=== PATIENT | male | born 1935 | race Caucasian/White ===

== ENCOUNTER 2018-01-31 21:05 | Emergency (ER) | payer MEDICARE, BC ==
[2018-01-31] MEDS ORDERED: hydrOXYzine HCl 50 MG/ML SDV IM ONE (21:21)
[2018-01-31] MEDS ORDERED: Triamcinolone Acetonide 40 MG/ML 1 ML MDV IM ONE (21:21)
--- NOTE | 2018-01-31 21:37 | EDM.PDOC ---
ED HPI GENERAL MEDICAL PROBLEM - General Stated Complaint: RASHES ALL BODY Time Seen by Provider: 01/31/18 21:15 Source of Information: Reports: Patient History Limitations: Reports: No Limitations - History of Present Illness INITIAL COMMENTS - FREE TEXT/NARRATIVE: Km complaints of a itchy rash to this that was sudden onset tonight where he was seated at home with that.Started in the hands now spread to the body, but had improved after he took a warm shower and used an anti-itch cream. He denies any new medications but did eat new cookies he has never eaten before tonight. Km has hypertension that is stable. - Related Data Allergies Allergy/AdvReac Type Severity Reaction Status Date / Time No Known Allergies Allergy Verified 01/31/18 21:18 Home Meds: Home Meds Aspirin [Halfprin] 81 mg PO DAILY 03/16/16 [History] Docusate Sodium [Colace] 100 mg PO DAILY 03/16/16 [History] Ergocalciferol (Vitamin D2) [Vitamin D] 400 units PO ASDIRECTED 03/16/16 [ History] Hydrochlorothiazide/Losartan [Hyzaar 100-12.5 MG] 12.5 - 100 mg PO DAILY [History] Lovastatin [Mevacor] 20 mg PO BEDTIME 03/16/16 [History] Lutein/Min/Vit C/Vit E Acetate [Ocuvite Lutein] 1 tab PO DAILY 03/16/16 [History ] Terazosin [Hytrin] 10 mg PO DAILY 03/16/16 [History] Timolol Maleate [Timoptic 0.5% Ophth Soln] 1 drop EYERT DAILY 03/16/16 [History] amLODIPine [Norvasc] 10 mg PO BID 03/16/16 [History] Acetaminophen/HYDROcodone [[place] 325-5 MG] 1 - 2 tab PO Q6H PRN #30 tab [Rx] Past Medical History HEENT History: Reports: Cataract, Glaucoma, Hard of Hearing Cardiovascular History: Reports: Arrhythmia, High Cholesterol, Hypertension, PVD Other Cardiovascular History: 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 Gastrointestinal History: Reports: Chronic Constipation Genitourinary History: Reports: Renal Calculus Musculoskeletal History: Reports: Osteoarthritis Other Musculoskeletal History: LEFT ING HERNIA Psychiatric History: Reports: Depression Other Psychiatric History: MALAISE AND FATIGUE Other Hematologic History: HYPERLIPIDEMIA Other Oncologic History: MALIGNANT NEOPLASM OF PROSTATE - Past Surgical History Other Female Surgeries/Procedures: HEMATURIA Social & Family History - Caffeine Use Caffeine Use: Reports: Coffee ED ROS GENERAL - Review of Systems Review Of Systems: ROS reveals no pertinent complaints other than HPI. ED EXAM, SKIN/RASH Exam: See Below Exam Limited By: No Limitations General Appearance: Alert Cardiovascular: Normal Peripheral Pulses Neurological: Alert, Oriented Skin: Warm, Excoriations, Rash (Red,diffuse abdominal,hands and extremeites) Course - Vital Signs Last Recorded V/S: Last Vital Signs Temp 98.2 F 01/31/18 21:05 Pulse 86 01/31/18 21:05 Resp 18 01/31/18 21:05 BP 130/56 L 01/31/18 21:05 Pulse Ox 97 01/31/18 21:05 - Orders/Labs/Meds Meds: Medications Discontinued Medications Generic Name Dose Route Start Last Admin Trade Name Freq PRN Reason Stop Dose Admin Hydroxyzine HCl 50 mg 01/31/18 21:21 01/31/18 21:41 Vistaril IM 01/31/18 21:22 50 mg ONETIME ONE Administration Triamcinolone Acetonide 40 mg 01/31/18 21:21 01/31/18 21:41 Kenalog-40 IM 01/31/18 21:22 40 mg ONETIME ONE Administration Departure - Departure Time of Disposition: 22:11 Disposition: Home, Self-Care 01 Clinical Impression: Urticaria, Pruritic rash - Discharge Information Instructions: Pruritus Referrals: Gary Almonte MD [Primary Care Provider] - Forms: ED Department Discharge Additional Instructions: follow up with your primary care as needed - Problem List & Annotations (1) Pruritus SNOMED Code(s): 728221631 Code(s): L29.9 - PRURITUS, UNSPECIFIED Status: Acute Current Visit: Yes - Problem List Review Problem List Initiated/Reviewed/Updated: Yes - Assessment/Plan Plan: I gave him Vistaril and Kenalog.Symptoms resolved.DC home.
[2018-01-31 22:17] VITALS: BP 117/59
== END 2018-01-31 22:11 | disposition home or self-care (01) ==
LOC: FB.ED 21:05
DX: L50.9 Urticaria, unspecified (principal); L29.9 Pruritus, unspecified; I10 Essential (primary) hypertension; E78.5 Hyperlipidemia, unspecified; Z79.82 Long term (current) use of aspirin; Z79.899 Other long term (current) drug therapy; Z87.891 Personal history of nicotine dependence
CPT/HCPCS: 96372; 99282; J3301; J3410

== ENCOUNTER 2018-11-06 11:09 | Emergency (ER) | payer MEDICARE, BC ==
--- NOTE | 2018-11-06 12:48 | EDM.PDOC ---
ED HPI GENERAL MEDICAL PROBLEM - General Chief Complaint: Cardiovascular Problem Stated Complaint: CHEST PAIN Time Seen by Provider: 11/06/18 11:50 Source of Information: Reports: Patient History Limitations: Reports: Other (Patient is a relatively poor historian) - History of Present Illness INITIAL COMMENTS - FREE TEXT/NARRATIVE: 83-year-old male who reports while he was getting dressed at about 10:30 this morning he developed a pressure and tightness-type discomfort in his chest. He reports that it was all across his chest and he rated as a 5/10. He had no back pain. He had no arm pain. He reports the discomfort lasted for about 5-10 minutes. He was driving to the clinic and by the time he got to the clinic his symptoms are gone He had no neck or jaw pain. He did not feel short of breath. He states he had a similar pain approximately 2 days prior that also came on when he was getting dressed but it was less severe and lasted only for 5-10 minutes as well. He has had no cough. He has had no fevers or chills. He has had no nausea or vomiting. He states that he walks every day and he tells me that he never has had any problems with difficulty breathing with walking and his exercise tolerance is unchanged. Currently he has no symptoms. He rates his pain as a 0/10. He apparently stopped at the clinic and when he told them that he had chest pain, they sent him to the emergency department for evaluation. There are no other associated signs or symptoms. There are no other modifying factors. Onset: Today (10:30 AM) Duration: Resolved Prior to Arrival Location: Reports: Chest Quality: Reports: Pressure (And tightness) Severity: Moderate Improves with: Reports: None Worsens with: Reports: None Context: Reports: Other (While getting dressed) Associated Symptoms: Reports: No Other Symptoms (Besides his chest discomfort) Treatments RN FORENSIC: Reports: Other (see below) (Nothing) - Related Data Allergies Allergy/AdvReac Type Severity Reaction Status Date / Time No Known Allergies Allergy Verified 11/06/18 11:39 Home Meds: Home Meds Aspirin [Halfprin] 81 mg PO DAILY 03/16/16 [History] Docusate Sodium [Colace] 100 mg PO DAILY 03/16/16 [History] Ergocalciferol (Vitamin D2) [Vitamin D] 400 units PO ASDIRECTED 03/16/16 [ History] Hydrochlorothiazide/Losartan [Hyzaar 100-12.5 MG] 1 tab PO DAILY 03/16/16 [ History] Lovastatin [Mevacor] 20 mg PO BEDTIME 03/16/16 [History] Lutein/Min/Vit C/Vit E Acetate [Ocuvite Lutein] 1 tab PO DAILY 03/16/16 [History ] Terazosin [Hytrin] 10 mg PO BEDTIME 03/16/16 [History] Timolol Maleate [Timoptic 0.5% Ophth Soln] 1 drop EYEBOTH DAILY 03/16/16 [ History] amLODIPine [Norvasc] 10 mg PO BID 03/16/16 [History] Acetaminophen/HYDROcodone [[place] 325-5 MG] 1 - 2 tab PO Q6H PRN #30 tab [Rx] Ipratropium [Atrovent 0.03% Nasal [place]] 2 spray NS BID PRN 11/06/18 [History] Latanoprost [Xalatan] 1 drop EYERT DAILY 11/06/18 [History] Past Medical History HEENT History: Reports: Cataract, Glaucoma, Hard of Hearing Cardiovascular History: Reports: Arrhythmia, CAD, High Cholesterol, Hypertension , PVD Other Cardiovascular History: 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 Gastrointestinal History: Reports: Chronic Constipation Genitourinary History: Reports: BPH, Prostate Disorder, Renal Calculus, UTI, Recurrent Musculoskeletal History: Reports: Arthritis, Osteoarthritis Psychiatric History: Reports: Depression Oncologic (Cancer) History: Reports: Prostate - Past Surgical History HEENT Surgical History: Reports: Cataract Surgery Other HEENT Surgeries/Procedures: L bilat cataract GI Surgical History: Reports: Appendectomy, Hernia, Inguinal Other GI Surgeries/Procedures: L hernia repair Male Surgical History: Reports: Renal Calculus Social & Family History - Family History Family Medical History: Noncontributory - Tobacco Use Smoking Status *Q: Former Smoker Used Tobacco, but Quit: Yes Month/Year Tobacco Last Used: 1968 - Caffeine Use Caffeine Use: Reports: Coffee - Alcohol Use Alcohol Use History: Yes Alcohol Use Frequency: Daily (1 drink a day) - Living Situation & Occupation Living situation: Reports: Occupation: Retired Social History Comment: Lives in [place], [place] by himself. ED ROS GENERAL - Review of Systems Review Of Systems: See Below Constitutional: Reports: No Symptoms HEENT: Reports: No Symptoms Respiratory: Reports: No Symptoms Cardiovascular: Reports: Chest Pain (As above). Denies: Dyspnea on Exertion Endocrine: Reports: No Symptoms GI/Abdominal: Reports: No Symptoms : Reports: No Symptoms (No acute symptoms. Patient with problems with urination secondary to BPH) Musculoskeletal: Reports: No Symptoms Skin: Reports: No Symptoms Neurological: Reports: No Symptoms Hematologic/Lymphatic: Reports: No Symptoms Immunologic: Reports: No Symptoms ED EXAM, GENERAL - Physical Exam Exam: See Below Exam Limited By: No Limitations General Appearance: Alert, WD/WN, No Apparent Distress Eye Exam: Bilateral Eye: EOMI, Normal Inspection, PERRL Ears: Normal External Exam Ear Exam: Bilateral Ear: Auricle Normal Nose: Normal Inspection, Normal Mucosa, No Blood Throat/Mouth: Normal Inspection, Normal Oropharynx, Normal Voice, No Airway Compromise Head: Atraumatic, Normocephalic Neck: Normal Inspection, Supple, Non-Tender, Full Range of Motion Respiratory/Chest: No Respiratory Distress, Lungs Clear, Normal Breath Sounds, No Accessory Muscle Use, Chest Non-Tender Cardiovascular: No Gallop, No JVD, Irregularly Irregular, Other (Patient's radial pulses are present and symmetric) Peripheral Pulses: 2+: Radial (L), Radial (R) GI/Abdominal: Normal Bowel Sounds, Soft, Non-Tender, No Organomegaly, No Distention, No Mass Back Exam: Normal Inspection Extremities: Normal Range of Motion, Non-Tender, Normal Capillary Refill, Pedal Edema (Edema and lower legs and ankle area) Neurological: Alert, Oriented, CN II-XII Intact, Normal Cognition, No Motor/ Sensory Deficits Skin Exam: Warm, Dry, Intact, Normal Color, No Rash EKG INTERPRETATION EKG Date: 11/06/18 Time: 11:25 Rhythm: A-Fib Rate (Beats/Min): 73 [place]: Normal P-Wave: Absent QRS: Normal ST-T: Other (Lateral T-wave and inferior T-wave flattening) QT: Normal Comparison: NA - No Prior EKG Course - Vital Signs Last Recorded V/S: Last Vital Signs Temp 36.8 C 11/06/18 11:16 Pulse 69 11/06/18 14:00 Resp 18 11/06/18 14:00 BP 142/86 H 11/06/18 14:00 Pulse Ox 100 11/06/18 14:00 - Orders/Labs/Meds Orders: Active Orders 24 hr Category Date Time Status EKG Documentation Completion [RC] ASDIRECTED Care 11/06/18 12:19 Active Chest 2V [CR] Stat Exams 11/06/18 12:18 Taken EKG 12 Lead [EK] Routine Ther 11/06/18 12:18 Ordered Labs: Laboratory Tests 11/06/18 11/06/18 11/06/18 Range/Units 11:40 11:40 11:40 WBC 8.0 (4.5-12.0) X10-3/uL RBC 4.60 (4.30-5.75) x10(6)uL Hgb 14.8 (13.5-17.8) g/dL Hct 43.6 (30.0-51.3) % MCV 94.9 (80-96) fL MCH 32.2 (27.7-33.6) pg MCHC 33.9 (32.2-35.4) g/dL RDW 12.7 (11.5-15.5) % Plt Count 168 (125-369) X10(3)uL MPV 10.3 (7.4-10.4) fL Neut % (Auto) 60.4 (46-82) % Lymph % (Auto) 26.2 (13-37) % [place] % (Auto) 6.9 (4-12) % Eos % (Auto) 4 (1.0-5.0) % Baso % (Auto) 2 (0-2) % Neut # (Auto) 4.8 (1.6-8.3) # Lymph # (Auto) 2.1 (0.6-5.0) # [place] # (Auto) 0.6 (0.0-1.3) # Eos # (Auto) 0.3 (0.0-0.8) # Baso # (Auto) 0.2 (0.0-0.2) # Sodium 141 (135-145) mmol/L Potassium 3.9 (3.5-5.3) mmol/L Chloride 105 (100-110) mmol/L Carbon Dioxide 30 (21-32) mmol/L BUN 20 H (7-18) mg/dL Creatinine 1.1 (0.70-1.30) mg/dL Est Cr Clr Drug Dosing 57.50 mL/min Estimated GFR (MDRD) > 60 (>60) BUN/Creatinine Ratio 18.2 (9-20) Glucose 103 (80-116) mg/dL Calcium 9.2 (8.6-10.2) mg/dL Magnesium 1.8 (1.8-2.5) mg/dL Total Bilirubin 1.3 (0.1-1.3) mg/dL AST 20 (5-25) IU/L ALT 24 (12-36) U/L Alkaline Phosphatase 72 (56-112) IU/L Troponin I < 0.017 L (<0.017-0.056) ng/mL NT-Pro-B Natriuret Pep 376 (<=450) pg/mL Total Protein 7.0 (6.0-8.0) g/dL Albumin 3.5 (3.2-4.6) g/dL Globulin 3.5 g/dL Albumin/Globulin Ratio 1.0 - Radiology Interpretation Free Text/Narrative:: Chest x-ray PA and lateral shows no acute disease.. - Re-Assessments/Exams Free Text/Narrative Re-Assessment/Exam: 11/06/18 14:00: Patient is completely asymptomatic now. His lab tests are reassuring. His EKG does show atrial fibrillation with a controlled rate. He has no history of this area there was, however, no old EKG for comparison. I suspect that the atrial fibrillation is new. The 2 episodes of chest pain could be related to the atrial fibrillation or could be related to anginal type pain. He does not appear to have any unstable situation at this point. I feel that he is safe for discharge. He does however need follow-up with his primary doctor and he will need additional outpatient testing for this A. fib and for his episodic chest pain. I discussed this with the patient and with his daughter and he he does in fact have an appointment to see his primary doctor at 9 AM tomorrow. I have also stressed to the patient and to the daughter that if the patient develops recurrent/persistent chest pain that lasts longer than the 5- 10 minutes or is associated with shortness of breath or any other concerning symptoms, he should come back to the emergency department immediately for reevaluation. Departure - Departure Time of Disposition: 14:25 Disposition: Home, Self-Care Condition: Good (Stable) Clinical Impression: Atrial fibrillation with normal ventricular rate Chest pain Qualifiers: Chest pain type: unspecified Qualified Code(s): R07.9 - Chest pain, unspecified Instructions: Nonspecific Chest Pain, [id number], Atrial Fibrillation, Easy- to-Read Referrals: Arsalan York PA [Primary Care Provider] - Forms: ED Department Discharge Additional Instructions: Your blood tests were reassuringly normal. Your chest x-ray was normal. Your EKG showed an abnormal heart rhythm called atrial fibrillation. This could be the cause of your symptoms. You will need to follow-up with your primary doctor to have this checked out more fully and you will need to have distal testing by your doctor. Call your doctor to arrange an appointment to see him this week. You do not appear to be having a heart attack at this point. Back to the emergency department for recurrent/persistent chest discomfort, trouble breathing or any other concerning sign or symptom. - My Orders Last 24 Hours: My Active Orders 11/06/18 12:18 Chest 2V [CR] Stat EKG 12 Lead [EK] Routine 11/06/18 12:19 EKG Documentation Completion [RC] ASDIRECTED - Assessment/Plan Last 24 Hours: My Active Orders 11/06/18 12:18 Chest 2V [CR] Stat EKG 12 Lead [EK] Routine 11/06/18 12:19 EKG Documentation Completion [RC] ASDIRECTED
[2018-11-06 17:14] VITALS: BP 142/86
--- NOTE | 2018-11-07 08:55 | CR ---
INDICATION: Chest discomfort transient. CHEST TWO VIEWS: PA and lateral views of the chest 11/06/[address] of 12/18/07. The aorta is tortuous with calcification in the arch as previously. The heart is normal in size and shape. Bridging hyperostotic changes are noted in the mid-thoracic spine. The lungs appear to be somewhat hyperaerated with minimal flattening of the diaphragm leads on the lateral view and no other findings to suggest COPD. A definite active infiltrate or effusion was not identified. IMPRESSION: 1. No definite acute process. 2. ASD aorta. 3. Question mild COPD. 4. DJD spine. MTDD
== END 2018-11-06 14:35 | disposition home or self-care (01) ==
LOC: FB.ED 11:09
DX: I48.91 Unspecified atrial fibrillation (principal); I25.10 Atherosclerotic heart disease of native coronary artery without angina pectoris; Z79.82 Long term (current) use of aspirin; Z79.899 Other long term (current) drug therapy; M19.90 Unspecified osteoarthritis, unspecified site; Z98.41 Cataract extraction status, right eye; Z98.42 Cataract extraction status, left eye; Z90.49 Acquired absence of other specified parts of digestive tract
CPT/HCPCS: 36415; 71046; 80053; 83735; 83880; 84484; 85025; 93005; 99285-25

== ENCOUNTER 2019-03-28 | Observation (INO) | payer MEDICARE, BC ==
[2019-03-28] MEDS ORDERED: Alum Hydroxide/Mag Hydroxide 15 ML, Lidocaine 2% 15 ML PO ONE ×2 (00:14)
--- NOTE | 2019-03-28 00:19 | EDM.PDOC ---
ED HPI GENERAL MEDICAL PROBLEM - General Chief Complaint: Abdominal Pain Stated Complaint: STOMACH PAIN Time Seen by Provider: 03/28/19 00:05 Source of Information: Reports: Patient, Family History Limitations: Reports: Physical Impairment (hearing impaired) - History of Present Illness INITIAL COMMENTS - FREE TEXT/NARRATIVE: Km comes into [facility] ED with sxs of epigastric pain that started acutely about half hour ago. Awakened from sleep, pain is sharp at times, radiated accross upper abdomen only, no associated with heartburn, gas or belching. There is no voiding sxs, no nausea, diarrhea or constipation issues. He has never had this pain before. He has tried no meds. abdomen Pain Score (Numeric/FACES): 8 - Related Data Allergies Allergy/AdvReac Type Severity Reaction Status Date / Time No Known Allergies Allergy Verified 03/28/19 00:57 Home Meds: Home Meds Aspirin [Halfprin] 81 mg PO DAILY 03/16/16 [History] Docusate Sodium [Colace] 100 mg PO DAILY 03/16/16 [History] Ergocalciferol (Vitamin D2) [Vitamin D] 400 units PO ASDIRECTED 03/16/16 [ History] Hydrochlorothiazide/Losartan [Hyzaar 100-12.5 MG] 1 tab PO DAILY 03/16/16 [ History] Lovastatin [Mevacor] 20 mg PO BEDTIME 03/16/16 [History] Lutein/Min/Vit C/Vit E Acetate [Ocuvite Lutein] 1 tab PO DAILY 03/16/16 [History ] Terazosin [Hytrin] 10 mg PO BEDTIME 03/16/16 [History] Timolol Maleate [Timoptic 0.5% Ophth Soln] 1 drop EYEBOTH DAILY 03/16/16 [ History] amLODIPine [Norvasc] 10 mg PO BID 03/16/16 [History] Acetaminophen/HYDROcodone [[place] 325-5 MG] 1 - 2 tab PO Q6H PRN #30 tab [Rx] Ipratropium [Atrovent 0.03% Nasal [place]] 2 spray NS BID PRN 11/06/18 [History] Latanoprost [Xalatan] 1 drop EYERT DAILY 11/06/18 [History] Metoprolol Succinate [Toprol XL] 25 mg PO DAILY 03/28/19 [History] Pantoprazole [ProTONIX] 40 mg PO DAILY 03/28/19 [History] Warfarin [Coumadin] 2.5 mg PO DAILY 03/28/19 [History] Past Medical History HEENT History: Reports: Cataract, Glaucoma, Hard of Hearing Cardiovascular History: Reports: Arrhythmia, CAD, High Cholesterol, Hypertension , PVD Other Cardiovascular History: 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 Gastrointestinal History: Reports: Chronic Constipation Genitourinary History: Reports: BPH, Prostate Disorder, Renal Calculus, UTI, Recurrent Musculoskeletal History: Reports: Arthritis, Osteoarthritis Other Musculoskeletal History: LEFT ING HERNIA Psychiatric History: Reports: Depression Other Psychiatric History: MALAISE AND FATIGUE Other Hematologic History: HYPERLIPIDEMIA Oncologic (Cancer) History: Reports: Prostate Other Oncologic History: MALIGNANT NEOPLASM OF PROSTATE - Past Surgical History HEENT Surgical History: Reports: Cataract Surgery Other HEENT Surgeries/Procedures: L bilat cataract GI Surgical History: Reports: Appendectomy, Hernia, Inguinal Other GI Surgeries/Procedures: L hernia repair Male Surgical History: Reports: Renal Calculus Social & Family History - Family History Family Medical History: Noncontributory - Caffeine Use Caffeine Use: Reports: Coffee - Living Situation & Occupation Living situation: Reports: Occupation: Retired ED ROS GENERAL - Review of Systems Review Of Systems: See Below Constitutional: Reports: No Symptoms HEENT: Reports: No Symptoms Respiratory: Reports: No Symptoms Cardiovascular: Reports: No Symptoms Endocrine: Reports: No Symptoms GI/Abdominal: Reports: Abdominal Pain : Reports: No Symptoms Musculoskeletal: Reports: No Symptoms Skin: Reports: No Symptoms Neurological: Reports: No Symptoms Psychiatric: Reports: No Symptoms Hematologic/Lymphatic: Reports: No Symptoms Immunologic: Reports: No Symptoms ED EXAM, GI/ABD - Physical Exam Exam: See Below Exam Limited By: Physical Impairment (hearing impaired) General Appearance: Alert, WD/WN, Anxious, Mild Distress Eyes: Bilateral: Normal Appearance, EOMI Ears: Normal External Exam, Hearing Loss Nose: Normal Inspection Throat/Mouth: Normal Inspection, Normal Lips, Normal Oropharynx, Normal Voice, No Airway Compromise Head: Normocephalic Neck: Normal Inspection, Supple, Non-Tender Respiratory/Chest: No Respiratory Distress, Lungs Clear, No Accessory Muscle Use , Chest Non-Tender Cardiovascular: Regular Rate, Rhythm, No Edema, No Gallop, No JVD, No Murmur GI/Abdominal Exam: Normal Bowel Sounds, Soft, No Organomegaly, No Distention, No Abnormal Bruit, No Mass, Tender (epigastrium) (Male) Exam: Deferred Rectal (Males) Exam: Deferred Back Exam: Normal Inspection Extremities: Normal Inspection Neurological: Alert, Oriented, Normal Gait, No Motor/Sensory Deficits Psychiatric: Normal Affect, Anxious Skin Exam: Warm, Dry, Intact, Normal Color, No Rash Lymphatic: No Adenopathy Course - Vital Signs Text/Narrative:: Following assessment at the [facility] ED, I administered a GI Cocktail which provided any sxs relief. Subsequent screeing labs and an Abd Pelvic CT w contrast was baseline. I discussed admission to Observation and empiric trial of PPI with Protonix 80 mg IV this early am, and will keep NPO if EGD is considered needed. Last Recorded V/S: Last Vital Signs Temp 36.8 C 03/28/19 00:05 Pulse 75 03/28/19 00:50 Resp 18 03/28/19 00:50 BP 119/69 03/28/19 00:50 Pulse Ox 100 03/28/19 00:50 - Orders/Labs/Meds Orders: Active Orders 24 hr Category Date Time Status Patient Status Manage Transfer [TRANSFER] Routine ADT 03/28/19 02:11 Active CTA Abd Pelv w Cont [CT] Stat Exams 03/28/19 00:41 Taken Sodium Chloride 0.9% [Normal Saline] 1,000 ml Med 03/28/19 02:15 Active IV ASDIRECTED Sodium Chloride 0.9% [Saline Flush] Med 03/28/19 02:13 Active 10 ml FLUSH ASDIRECTED PRN Peripheral IV Insertion Adult [OM.PC] Routine Oth 03/28/19 02:13 Ordered Medication Orders Sodium Chloride (Normal Saline) 1,000 mls @ 150 mls/hr IV ASDIRECTED RUSS Stop: 03/29/19 08:54 Sodium Chloride (Saline Flush) 10 ml FLUSH ASDIRECTED PRN PRN Reason: Keep Vein Open Labs: Laboratory Tests 03/28/19 03/28/19 Range/Units 00:23 00:23 WBC 10.1 (4.5-12.0) X10-3/uL RBC 4.43 (4.30-5.75) x10(6)uL Hgb 14.1 (13.5-17.8) g/dL Hct 41.8 (30.0-51.3) % MCV 94.4 (80-96) fL MCH 31.8 (27.7-33.6) pg MCHC 33.7 (32.2-35.4) g/dL RDW 13.3 (11.5-15.5) % Plt Count 173 (125-369) X10(3)uL MPV 9.4 (7.4-10.4) fL Neut % (Auto) 62.3 (46-82) % Lymph % (Auto) 28.0 (13-37) % [place] % (Auto) 6.1 (4-12) % Eos % (Auto) 3 (1.0-5.0) % Baso % (Auto) 0 (0-2) % Neut # (Auto) 6.4 (1.6-8.3) # Lymph # (Auto) 2.8 (0.6-5.0) # [place] # (Auto) 0.6 (0.0-1.3) # Eos # (Auto) 0.3 (0.0-0.8) # Baso # (Auto) 0.0 (0.0-0.2) # Sodium 144 (135-145) mmol/L Potassium 3.2 L (3.5-5.3) mmol/L Chloride 106 (100-110) mmol/L Carbon Dioxide 29 (21-32) mmol/L BUN 21 H (7-18) mg/dL Creatinine 1.2 (0.70-1.30) mg/dL Est Cr Clr Drug Dosing TNP Estimated GFR (MDRD) 58 L (>60) BUN/Creatinine Ratio 17.5 (9-20) Glucose 135 H (80-116) mg/dL Calcium 8.9 (8.6-10.2) mg/dL Meds: Medications Generic Name Dose Route Start Last Admin Trade Name Freq PRN Reason Stop Dose Admin Sodium Chloride 1,000 mls @ 150 mls/hr 03/28/19 02:15 Normal Saline IV 03/29/19 08:54 ASDIRECTED RUSS Sodium Chloride 10 ml 03/28/19 02:13 Saline Flush FLUSH ASDIRECTED PRN Keep Vein Open Discontinued Medications Generic Name Dose Route Start Last Admin Trade Name Freq PRN Reason Stop Dose Admin Al Hydroxide/Mg Hydroxide 15 0 ml 03/28/19 00:14 03/28/19 00:25 ml/ Lidocaine HCl 15 ml PO 03/28/19 00:15 30 ml ONETIME ONE Administration Iopamidol 100 ml 03/28/19 01:01 03/28/19 01:23 Isovue-370 (76%) IV 03/28/19 01:02 100 ml . DIRECTED ONE Administration Pantoprazole Sodium 80 mg 03/28/19 02:14 Protonix Iv IVPUSH 03/28/19 02:15 .BOLUS ONE Departure - Departure Time of Disposition: 02:21 Disposition: Refer to Observation Condition: Fair Clinical Impression: Abdominal pain Qualifiers: Abdominal location: epigastric Qualified Code(s): R10.13 - Epigastric pain - Discharge Information *PRESCRIPTION DRUG MONITORING PROGRAM REVIEWED*: Not Applicable *COPY OF PRESCRIPTION DRUG MONITORING REPORT IN PATIENT LEONEL: Not Applicable - Problem List & Annotations (1) Abdominal pain SNOMED Code(s): 49895172 Code(s): R10.9 - UNSPECIFIED ABDOMINAL PAIN Status: Acute Current Visit: Yes Annotation/Comment:: Hospitalist to assume care in the am. Qualifiers: Abdominal location: epigastric Qualified Code(s): R10.13 - Epigastric pain - Problem List Review Problem List Initiated/Reviewed/Updated: Yes - My Orders Last 24 Hours: My Active Orders 03/28/19 00:41 CTA Abd Pelv w Cont [CT] Stat 03/28/19 02:11 Patient Status Manage Transfer [TRANSFER] Routine 03/28/19 02:13 Sodium Chloride 0.9% [Saline Flush] 10 ml FLUSH ASDIRECTED PRN Peripheral IV Insertion Adult [OM.PC] Routine 03/28/19 02:15 Sodium Chloride 0.9% [Normal Saline] 1,000 ml IV ASDIRECTED - Assessment/Plan Last 24 Hours: My Active Orders 03/28/19 00:41 CTA Abd Pelv w Cont [CT] Stat 03/28/19 02:11 Patient Status Manage Transfer [TRANSFER] Routine 03/28/19 02:13 Sodium Chloride 0.9% [Saline Flush] 10 ml FLUSH ASDIRECTED PRN Peripheral IV Insertion Adult [OM.PC] Routine 03/28/19 02:15 Sodium Chloride 0.9% [Normal Saline] 1,000 ml IV ASDIRECTED Plan: Hospitalist to assume care in the am.
[2019-03-28] MEDS ORDERED: Iopamidol 755 Mg/ML 100 ML Bottle IV ONE (01:01)
[2019-03-28] MEDS ORDERED: Pantoprazole 40 MG Vial IVPUSH ONE (02:14)
[2019-03-28] MEDS ORDERED: Sodium Chloride 0.9% 1,000 ML IV SCH ×2 (02:15→11:00)
[2019-03-28] MEDS ORDERED: Furosemide 40 MG/4 ML VIAL IVPUSH ONE (08:46)
[2019-03-28] MEDS: Sodium Chloride 0.9% 10 ML Syringe FLUSH PRN ×3 (08:59→09:59)
[2019-03-28] MEDS ORDERED: Acetaminophen 650 MG Supp RECTAL ONE (09:10)
[2019-03-28] MEDS ORDERED: Acetaminophen 325 MG Tab PO PRN (09:11)
[2019-03-28] MEDS ORDERED: Meropenem 1 GM SDV IVPUSH SCH (09:15)
--- NOTE | 2019-03-28 09:32 | PCM.HP.2 ---
H&P History of Present Illness - General Date of Service: 03/28/19 Admit Problem/Dx: Admission Diagnosis/Problem Admission Diagnosis/Problem Abdominal pain Source of Information: Patient, EMS Notes Reviewed, Family - History of Present Illness Initial Comments - Free Text/Narative: patient was woken up after sleep last evening with severe abdominal pain, no fevers, chills, shortness of breath, cough, chest pain, nausea, vomiting, diarrhea, or constipation. No dysuria, frequency, or hematuria. No rashes. He lives at home with family close by, 2 years ago. History of atrial fibrillation. Has been doing well up to last night. No sinus symptoms. No history of cholecystectomy or appendectomy. abdomen Pain Score (Numeric/FACES): 9 - Related Data Allergies/Adverse Reactions: Allergies Allergy/AdvReac Type Severity Reaction Status Date / Time No Known Allergies Allergy Verified 03/28/19 00:57 Home Medications: Home Meds RX: Aspirin [Halfprin] 81 mg PO DAILY 03/16/16 [History] RX: Docusate Sodium [Colace] 100 mg PO DAILY PRN 03/16/16 [History] RX: Ergocalciferol (Vitamin D2) [Vitamin D] 400 units PO DAILY 03/16/16 [History ] RX: Lovastatin [Mevacor] 20 mg PO BEDTIME 03/16/16 [History] RX: Lutein/Min/Vit C/Vit E Acetate [Ocuvite Lutein] 1 tab PO DAILY 03/16/16 [ History] RX: Terazosin [Hytrin] 10 mg PO BEDTIME 03/16/16 [History] RX: Timolol Maleate [Timoptic 0.5% Ophth Soln] 1 drop EYERT DAILY 03/16/16 [ History] RX: amLODIPine [Norvasc] 5 mg PO BID 03/16/16 [History] Ipratropium [Atrovent 0.03% Nasal [place]] 2 spray NS BID PRN 11/06/18 [History] Latanoprost [Xalatan] 1 drop EYERT BEDTIME 11/06/18 [History] Leg Vein Essentials 1 cap PO DAILY 03/28/19 [History] Losartan/Hydrochlorothiazide [Losartan-HCTZ 100-12.5 MG] 1 tab PO DAILY [History] Metoprolol Succinate [Toprol XL] 25 mg PO DAILY 03/28/19 [History] Pantoprazole [ProTONIX] 40 mg PO DAILY 03/28/19 [History] RX: Warfarin [Coumadin] 2.5 mg PO WE@1800 03/28/19 [History] RX: Warfarin [Coumadin] 3.75 mg PO SUMOTUTHFRSA@1800 03/28/19 [History] Past Medical History HEENT History: Reports: Cataract, Glaucoma, Hard of Hearing Cardiovascular History: Reports: Arrhythmia, CAD, High Cholesterol, Hypertension , PVD Other Cardiovascular History: 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 Gastrointestinal History: Reports: Chronic Constipation Genitourinary History: Reports: BPH, Prostate Disorder, Renal Calculus, UTI, Recurrent Musculoskeletal History: Reports: Arthritis, Osteoarthritis Other Musculoskeletal History: LEFT ING HERNIA Psychiatric History: Reports: Depression Other Psychiatric History: MALAISE AND FATIGUE Other Hematologic History: HYPERLIPIDEMIA Oncologic (Cancer) History: Reports: Prostate Other Oncologic History: MALIGNANT NEOPLASM OF PROSTATE - Past Surgical History HEENT Surgical History: Reports: Cataract Surgery Other HEENT Surgeries/Procedures: L bilat cataract GI Surgical History: Reports: Appendectomy, Hernia, Inguinal Other GI Surgeries/Procedures: L hernia repair Male Surgical History: Reports: Renal Calculus Social & Family History - Family History Family Medical History: Noncontributory - Tobacco Use Smoking Status *Q: Former Smoker Years of Tobacco use: 10 Used Tobacco, but Quit: No Month/Year Tobacco Last Used: 1959 - Caffeine Use Caffeine Use: Reports: Coffee - Alcohol Use Number of Drinks Per Day: 1 Date of Last Drink: 03/24/19 - Recreational Drug Use Recreational Drug Use: No - Living Situation & Occupation Living situation: Reports: Occupation: Retired H&P Review of Systems - Review of Systems: Review Of Systems: See Below General: Reports: Chills. Denies: Fever, Diaphoresis HEENT: Reports: No Symptoms Pulmonary: Reports: No Symptoms Cardiovascular: Reports: No Symptoms Gastrointestinal: Reports: Abdominal Pain, Flatus. Denies: Black Stool, Bloody Stool, Constipation, Diarrhea, Difficulty Swallowing, Nausea, Vomiting Genitourinary: Reports: No Symptoms Musculoskeletal: Reports: Back Pain (but states its gone here this morning) Skin: Reports: Jaundice Psychiatric: Reports: No Symptoms Neurological: Reports: No Symptoms Hematologic/Lymphatic: Reports: No Symptoms Exam - Exam Exam: See Below - Vital Signs Vital Signs: Last Vital Signs Temp 101.2 F H 03/28/19 07:55 Pulse 126 H 03/28/19 07:55 Resp 30 H 03/28/19 07:55 BP 107/70 03/28/19 07:55 Pulse Ox 96 03/28/19 07:55 Weight: 181 lb 3.2 oz - Exam General: Alert, Oriented, Cooperative, Other (chilled, states he cold) HEENT: PERRLA, Conjunctiva Clear, EOMI, Hearing Intact, Mucosa Moist & [place], Nares Patent, Normal Nasal Septum, Posterior Pharynx Clear, TMs Clear (right, blocked on left with cerumen) Neck: Supple, Trachea Midline, 2 Lungs: Normal Respiratory Effort, Decreased Breath Sounds Cardiovascular: Regular Rate, Regular Rhythm GI/Abdominal Exam: Normal Bowel Sounds, Soft, No Organomegaly, No Distention, No Mass, Tender (slight epigastric/RUQ, bustamante's negative) (Male) Exam: Deferred Rectal (Males) Exam: Deferred Extremities: No Pedal Edema Skin: Warm, Dry, Intact Neurological: Cranial Nerves Intact Psychiatric: Normal Affect, Normal Mood - Patient Data Lab Results Last 24 hrs: Laboratory Results - last 24 hr 03/28/19 03/28/19 03/28/19 Range/Units 00:05 00:23 00:23 WBC 10.1 (4.5-12.0) X10-3/uL RBC 4.43 (4.30-5.75) x10(6)uL Hgb 14.1 (13.5-17.8) g/dL Hct 41.8 (30.0-51.3) % MCV 94.4 (80-96) fL MCH 31.8 (27.7-33.6) pg MCHC 33.7 (32.2-35.4) g/dL RDW 13.3 (11.5-15.5) % Plt Count 173 (125-369) X10(3)uL MPV 9.4 (7.4-10.4) fL Neut % (Auto) 62.3 (46-82) % Lymph % (Auto) 28.0 (13-37) % [place] % (Auto) 6.1 (4-12) % Eos % (Auto) 3 (1.0-5.0) % Baso % (Auto) 0 (0-2) % Neut # (Auto) 6.4 (1.6-8.3) # Lymph # (Auto) 2.8 (0.6-5.0) # [place] # (Auto) 0.6 (0.0-1.3) # Eos # (Auto) 0.3 (0.0-0.8) # Baso # (Auto) 0.0 (0.0-0.2) # Sodium 144 (135-145) mmol/L Potassium 3.2 L (3.5-5.3) mmol/L Chloride 106 (100-110) mmol/L Carbon Dioxide 29 (21-32) mmol/L BUN 21 H (7-18) mg/dL Creatinine 1.2 (0.70-1.30) mg/dL Est Cr Clr Drug Dosing TNP Estimated GFR (MDRD) 58 L (>60) BUN/Creatinine Ratio 17.5 (9-20) Glucose 135 H (80-116) mg/dL Calcium 8.9 (8.6-10.2) mg/dL Total Bilirubin 1.4 H (0.1-1.3) mg/dL Direct Bilirubin 0.47 H (0.10-0.20) mg/dL AST 94 H D (5-25) IU/L ALT 63 H D (12-36) U/L Alkaline Phosphatase 72 (56-112) IU/L Total Protein 6.6 (6.0-8.0) g/dL Albumin 3.5 (3.2-4.6) g/dL Urine Color (YELLOW) Urine Appearance (CLEAR) Urine pH (5.0-6.5) Ur Specific [place] (1.010-1.025) Urine Protein (NEGATIVE) mg/dL Urine Glucose (UA) (NORMAL) mg/dL Urine Ketones (NEGATIVE) mg/dL Urine Occult Blood (NEGATIVE) Urine Nitrite (NEGATIVE) Urine Bilirubin (NEGATIVE) Urine Urobilinogen (NEGATIVE) mg/dL Ur Leukocyte Esterase (NEGATIVE) Urine RBC (0-5) Urine WBC (0-5) Ur Squamous Epith Cells (NS,R,O) Urine Bacteria (NS) Urine Mucus (NS) 03/28/19 Range/Units 02:15 WBC (4.5-12.0) X10-3/uL RBC (4.30-5.75) x10(6)uL Hgb (13.5-17.8) g/dL Hct (30.0-51.3) % MCV (80-96) fL MCH (27.7-33.6) pg MCHC (32.2-35.4) g/dL RDW (11.5-15.5) % Plt Count (125-369) X10(3)uL MPV (7.4-10.4) fL Neut % (Auto) (46-82) % Lymph % (Auto) (13-37) % [place] % (Auto) (4-12) % Eos % (Auto) (1.0-5.0) % Baso % (Auto) (0-2) % Neut # (Auto) (1.6-8.3) # Lymph # (Auto) (0.6-5.0) # [place] # (Auto) (0.0-1.3) # Eos # (Auto) (0.0-0.8) # Baso # (Auto) (0.0-0.2) # Sodium (135-145) mmol/L Potassium (3.5-5.3) mmol/L Chloride (100-110) mmol/L Carbon Dioxide (21-32) mmol/L BUN (7-18) mg/dL Creatinine (0.70-1.30) mg/dL Est Cr Clr Drug Dosing Estimated GFR (MDRD) (>60) BUN/Creatinine Ratio (9-20) Glucose (80-116) mg/dL Calcium (8.6-10.2) mg/dL Total Bilirubin (0.1-1.3) mg/dL Direct Bilirubin (0.10-0.20) mg/dL AST (5-25) IU/L ALT (12-36) U/L Alkaline Phosphatase (56-112) IU/L Total Protein (6.0-8.0) g/dL Albumin (3.2-4.6) g/dL Urine Color Yellow (YELLOW) Urine Appearance Clear (CLEAR) Urine pH 8.0 H (5.0-6.5) Ur Specific [place] 1.010 (1.010-1.025) Urine Protein Negative (NEGATIVE) mg/dL Urine Glucose (UA) 50 H (NORMAL) mg/dL Urine Ketones Negative (NEGATIVE) mg/dL Urine Occult Blood Negative (NEGATIVE) Urine Nitrite Negative (NEGATIVE) Urine Bilirubin Negative (NEGATIVE) Urine Urobilinogen Normal (NEGATIVE) mg/dL Ur Leukocyte Esterase Negative (NEGATIVE) Urine RBC 0-5 (0-5) Urine WBC 0-5 (0-5) Ur Squamous Epith Cells Rare (NS,R,O) Urine Bacteria Occasional H (NS) Urine Mucus Few H (NS) Result Diagrams: 03/28/19 09:10 03/28/19 00:23 - Problem List (1) Abdominal pain SNOMED Code(s): 00868748 ICD Code: R10.9 - UNSPECIFIED ABDOMINAL PAIN Status: Acute Current Visit : Yes Problem Details: Hospitalist to assume care in the am. Qualifiers: Abdominal location: epigastric Qualified Code(s): R10.13 - Epigastric pain (2) Atrial fibrillation with normal ventricular rate SNOMED Code(s): 21938824 ICD Code: I48.91 - UNSPECIFIED ATRIAL FIBRILLATION Status: Acute Current Visit: No (3) Inguinal hernia of left side without obstruction or gangrene SNOMED Code(s): 579730446 ICD Code: K40.90 - UNIL INGUINAL HERNIA, W/O OBST OR GANGR, NOT SPCF RECUR Status: Acute Current Visit: No Problem List Initiated/Reviewed/Updated: Yes Orders Last 24hrs: Active Orders 24 hr Category Date Time Status Patient Status [ADT] Routine ADT 03/28/19 03:42 Active Ambulate [RC] PER UNIT ROUTINE Care 03/28/19 03:42 Active Antiembolic Devices [RC] .Routine Care 03/28/19 03:42 Active Bedrest Bedside Commode [RC] ASDIRECTED Care 03/28/19 03:42 Active Muñoz Catheter Insertion [Insert Urinary Catheter] [OM. Care 03/28/19 09:00 Ordered PC] Q24H Height and Weight [RC] UPON Care 03/28/19 03:42 Active Intake and Output [RC] ASDIRECTED Care 03/28/19 03:42 Active Pulse Oximetry [RC] PRN Care 03/28/19 03:42 Active Urinary Catheter Assessment [RC] QSHIFT Care 03/28/19 08:46 Active VTE/DVT Education [RC] Click to Edit Care 03/28/19 03:42 Active Vital Signs [RC] 00,04,08,12,16,20 Care 03/28/19 03:42 Active Nothing per Oral Now Diet [DIET] Diet 03/28/19 Breakfast Active CTA Abd Pelv w Cont [CT] Stat Exams 03/28/19 00:41 Taken Chest 1V Frontal [CR] Routine Exams 03/28/19 08:50 Taken CBC WITH AUTO DIFF [HEME] Stat Lab 03/28/19 09:05 Ordered CULTURE BLOOD [BC] Stat Lab 03/28/19 09:06 Ordered CULTURE URINE [RM] Stat Lab 03/28/19 09:12 Ordered LACTIC ACID [CHEM] Stat Lab 03/28/19 09:05 Ordered Acetaminophen [Tylenol] Med 03/28/19 09:11 Active 650 mg PO Q6H PRN Meropenem [Merrem] Med 03/28/19 09:15 Active 1 gm IVPUSH Q8H Sodium Chloride 0.9% [Saline Flush] Med 03/28/19 02:13 Active 10 ml FLUSH ASDIRECTED PRN DVT/VTE Prophylaxis Reflex [OM.PC] Per Unit Routine Oth 03/28/19 03:42 Ordered Peripheral IV Insertion Adult [OM.PC] Routine Oth 03/28/19 02:13 Ordered Resuscitation Status Routine Resus Stat 03/28/19 02:14 Ordered Medication Orders Acetaminophen (Tylenol) 650 mg PO Q6H PRN PRN Reason: Fever Meropenem (Merrem) 1 gm IVPUSH Q8H RUSS Sodium Chloride (Saline Flush) 10 ml FLUSH ASDIRECTED PRN PRN Reason: Keep Vein Open Last Admin: 03/28/19 08:59 Dose: 10 ml Assessment/Plan Comment:: 1. Admitted for observation from ER for pain control, IV fluids and further evaluation. 2. Was given GI cocktail in ER which helped pain. 3. ECHO showed normal EF but with his age will slow down fluids to 70 ml/hr. 4. LFT add to previous blood draw as he is slightly icteric. 5. FULL CODE. 6. Adjust treatments as needed.
[2019-03-28] MEDS ORDERED: LORazepam 2 MG/ML SDV IVPUSH ONE (09:52)
--- NOTE | 2019-03-28 10:35 | PCM.DCSUM1 ---
Discharge Summary - Hospital Course HPI Initial Comments: patient was woken up after sleep last evening with severe abdominal pain, no fevers, chills, shortness of breath, cough, chest pain, nausea, vomiting, diarrhea, or constipation. No dysuria, frequency, or hematuria. No rashes. He lives at home with family close by, 2 years ago. History of atrial fibrillation. Has been doing well up to last night. No sinus symptoms. No history of cholecystectomy or appendectomy. - Discharge Data Discharge Date: 03/28/19 Discharge Disposition: DC/Tfer to Acute Hospital 02 Condition: Critical - Referral to Critical Access Hospital Primary Care Physician: MALISSA Solis - Discharge Diagnosis/Problem(s) (1) Sepsis SNOMED Code(s): 14619441 ICD Code: A41.9 - SEPSIS, UNSPECIFIED ORGANISM Status: Acute Current Visit: Yes (2) Hypotension SNOMED Code(s): 00197466 ICD Code: I95.9 - HYPOTENSION, UNSPECIFIED Status: Acute Current Visit: Yes (3) Acute confusion SNOMED Code(s): 087437625 ICD Code: R41.0 - DISORIENTATION, UNSPECIFIED Status: Acute Current Visit : Yes (4) Other elevated white blood cell count SNOMED Code(s): 636231377 ICD Code: D72.828 - OTHER ELEVATED WHITE BLOOD CELL COUNT Status: Acute Current Visit: Yes Problem Details: neutrophils 90% with band 4% (5) Lactic acid acidosis SNOMED Code(s): 52347387 ICD Code: E87.2 - ACIDOSIS Status: Acute Current Visit: Yes Problem Details: 5.7 (6) Hypokalemia SNOMED Code(s): 15027285 ICD Code: E87.6 - HYPOKALEMIA Status: Acute Current Visit: Yes (7) Abdominal pain SNOMED Code(s): 54414716 ICD Code: R10.9 - UNSPECIFIED ABDOMINAL PAIN Status: Acute Current Visit : Yes Qualifiers: Abdominal location: epigastric Qualified Code(s): R10.13 - Epigastric pain (8) Atrial fibrillation with normal ventricular rate SNOMED Code(s): 41253692 ICD Code: I48.91 - UNSPECIFIED ATRIAL FIBRILLATION Status: Acute Current Visit: No (9) Inguinal hernia of left side without obstruction or gangrene SNOMED Code(s): 769811605 ICD Code: K40.90 - UNIL INGUINAL HERNIA, W/O OBST OR GANGR, NOT SPCF RECUR Status: Acute Current Visit: No - Patient Summary/Data Hospital Course: Patient was admitted overnight with sudden onset of abdominal pain, but no vomiting, diarrhea, fevers or chills. Had GI cocktail in ER which helped with pain. CT showed no infectious process: lungs were clear, gallbladder moderately distended but no signs of fat stranding or inflammation. UA did not show signs of infection. Around 915 this morning he was found to be in rigors, acute confused, trying to get out of bed but not following commands, acute respiratory distress, respirations at 30, tried to place oxygen but kept taking off. Crackles throughout on exam, stat portable CXR was done, per my view flash pulmonary edema so gave Lasix 40 mg IV x 1, had Johnson placed. Attempted EKG but had a lot of artifact on due to rigors. Temp was 101.2F, tachycardiac at 126, BP 107/70. Tylenol 650 mg rectal given. Family called. Patient breathing improved, less air hungry. Patient kept trying to pull Johnson, required two nurses to keep him from pulling it out. Ativan 0.25 mg given. Stat CBC, blood cultures, lactic acid and urine culture ordered. Merrem 1 gm IV given after blood cultures obtained. Lactic acid came back at 5.7, normal WBC but neutrophils 90% and bands 4%. LFT slightly elevated. CXR report showed negative chest. Had talked with daughter on change of condition, spoke with her sister who brought him in via phone, I recommended transfer to higher level of care as we don't have a source of infection and guarded nature of his condition. They were in agreement with transfer. Spoke with Dr Bonilla at [facility], he will accept patient in transfer. Since CXR was read as negative, and lactic acid was 5.7 will restart fluids at 100 ml/hr for transport. - Patient Instructions Diet: NPO - Discharge Plan *PRESCRIPTION DRUG MONITORING PROGRAM REVIEWED*: Not Applicable *COPY OF PRESCRIPTION DRUG MONITORING REPORT IN PATIENT LEONEL: Not Applicable Home Medications: Home Meds RX: Aspirin [Halfprin] 81 mg PO DAILY 03/16/16 [History] RX: Docusate Sodium [Colace] 100 mg PO DAILY PRN 03/16/16 [History] RX: Ergocalciferol (Vitamin D2) [Vitamin D] 400 units PO DAILY 03/16/16 [History ] RX: Lovastatin [Mevacor] 20 mg PO BEDTIME 03/16/16 [History] RX: Lutein/Min/Vit C/Vit E Acetate [Ocuvite Lutein] 1 tab PO DAILY 03/16/16 [ History] RX: Terazosin [Hytrin] 10 mg PO BEDTIME 03/16/16 [History] RX: Timolol Maleate [Timoptic 0.5% Ophth Soln] 1 drop EYERT DAILY 03/16/16 [ History] RX: amLODIPine [Norvasc] 5 mg PO BID 03/16/16 [History] Ipratropium [Atrovent 0.03% Nasal [place]] 2 spray NS BID PRN 11/06/18 [History] Latanoprost [Xalatan] 1 drop EYERT BEDTIME 11/06/18 [History] Leg Vein Essentials 1 cap PO DAILY 03/28/19 [History] Losartan/Hydrochlorothiazide [Losartan-HCTZ 100-12.5 MG] 1 tab PO DAILY [History] Metoprolol Succinate [Toprol XL] 25 mg PO DAILY 03/28/19 [History] Pantoprazole [ProTONIX] 40 mg PO DAILY 03/28/19 [History] RX: Warfarin [Coumadin] 2.5 mg PO WE@1800 03/28/19 [History] RX: Warfarin [Coumadin] 3.75 mg PO SUMOTUTHFRSA@1800 03/28/19 [History] Patient Handouts: Abdominal Pain, Adult, [id number], Fall Prevention in Hospitals, Adult Forms: ED Department Discharge Referrals: Arsalan York PA [Primary Care Provider] - - Discharge Summary/Plan Comment DC Time >30 min.: No - Patient Data Vitals - Most Recent: Last Vital Signs Temp 101.2 F H 03/28/19 08:55 Pulse 126 H 03/28/19 08:55 Resp 30 H 03/28/19 08:55 BP 107/70 03/28/19 08:55 Pulse Ox 96 03/28/19 08:55 Weight - Most Recent: 181 lb 3.2 oz I&O - Last 24 hours: Intake & Output 03/27/19 03/28/1903/28/19 22:59 06:59 14:59 Intake Total 478 Output Total 200 Balance 278 Lab Results - Last 24 hrs: Laboratory Results - last 24 hr 03/28/19 03/28/19 03/28/19 Range/Units 00:05 00:23 00:23 WBC 10.1 (4.5-12.0) X10-3/uL RBC 4.43 (4.30-5.75) x10(6)uL Hgb 14.1 (13.5-17.8) g/dL Hct 41.8 (30.0-51.3) % MCV 94.4 (80-96) fL MCH 31.8 (27.7-33.6) pg MCHC 33.7 (32.2-35.4) g/dL RDW 13.3 (11.5-15.5) % Plt Count 173 (125-369) X10(3)uL MPV 9.4 (7.4-10.4) fL Neut % (Auto) 62.3 (46-82) % Lymph % (Auto) 28.0 (13-37) % [place] % (Auto) 6.1 (4-12) % Eos % (Auto) 3 (1.0-5.0) % Baso % (Auto) 0 (0-2) % Neut # (Auto) 6.4 (1.6-8.3) # Lymph # (Auto) 2.8 (0.6-5.0) # [place] # (Auto) 0.6 (0.0-1.3) # Eos # (Auto) 0.3 (0.0-0.8) # Baso # (Auto) 0.0 (0.0-0.2) # Add Manual Diff Neutrophils % (Manual) (46-82) % Band Neutrophils % (0-6) % Lymphocytes % (Manual) (13-37) % Monocytes % (Manual) (4-12) % Sodium 144 (135-145) mmol/L Potassium 3.2 L (3.5-5.3) mmol/L Chloride 106 (100-110) mmol/L Carbon Dioxide 29 (21-32) mmol/L BUN 21 H (7-18) mg/dL Creatinine 1.2 (0.70-1.30) mg/dL Est Cr Clr Drug Dosing TNP Estimated GFR (MDRD) 58 L (>60) BUN/Creatinine Ratio 17.5 (9-20) Glucose 135 H (80-116) mg/dL Lactic Acid (0.4-2.2) mmol/L Calcium 8.9 (8.6-10.2) mg/dL Total Bilirubin 1.4 H (0.1-1.3) mg/dL Direct Bilirubin 0.47 H (0.10-0.20) mg/dL AST 94 H D (5-25) IU/L ALT 63 H D (12-36) U/L Alkaline Phosphatase 72 (56-112) IU/L Total Protein 6.6 (6.0-8.0) g/dL Albumin 3.5 (3.2-4.6) g/dL Urine Color (YELLOW) Urine Appearance (CLEAR) Urine pH (5.0-6.5) Ur Specific [place] (1.010-1.025) Urine Protein (NEGATIVE) mg/dL Urine Glucose (UA) (NORMAL) mg/dL Urine Ketones (NEGATIVE) mg/dL Urine Occult Blood (NEGATIVE) Urine Nitrite (NEGATIVE) Urine Bilirubin (NEGATIVE) Urine Urobilinogen (NEGATIVE) mg/dL Ur Leukocyte Esterase (NEGATIVE) Urine RBC (0-5) Urine WBC (0-5) Ur Squamous Epith Cells (NS,R,O) Urine Bacteria (NS) Urine Mucus (NS) 03/28/19 03/28/19 03/28/19 Range/Units 02:15 09:10 09:10 WBC 7.2 (4.5-12.0) X10-3/uL RBC 4.42 (4.30-5.75) x10(6)uL Hgb 14.2 (13.5-17.8) g/dL Hct 42.2 (30.0-51.3) % MCV 95.4 (80-96) fL MCH 32.2 (27.7-33.6) pg MCHC 33.7 (32.2-35.4) g/dL RDW 13.1 (11.5-15.5) % Plt Count 146 (125-369) X10(3)uL MPV 9.5 (7.4-10.4) fL Neut % (Auto) (46-82) % Lymph % (Auto) (13-37) % [place] % (Auto) (4-12) % Eos % (Auto) (1.0-5.0) % Baso % (Auto) (0-2) % Neut # (Auto) (1.6-8.3) # Lymph # (Auto) (0.6-5.0) # [place] # (Auto) (0.0-1.3) # Eos # (Auto) (0.0-0.8) # Baso # (Auto) (0.0-0.2) # Add Manual Diff Yes Neutrophils % (Manual) 90 H (46-82) % Band Neutrophils % 4 (0-6) % Lymphocytes % (Manual) 5 L (13-37) % Monocytes % (Manual) 1 L (4-12) % Sodium (135-145) mmol/L Potassium (3.5-5.3) mmol/L Chloride (100-110) mmol/L Carbon Dioxide (21-32) mmol/L BUN (7-18) mg/dL Creatinine (0.70-1.30) mg/dL Est Cr Clr Drug Dosing Estimated GFR (MDRD) (>60) BUN/Creatinine Ratio (9-20) Glucose (80-116) mg/dL Lactic Acid 5.7 H* (0.4-2.2) mmol/L Calcium (8.6-10.2) mg/dL Total Bilirubin (0.1-1.3) mg/dL Direct Bilirubin (0.10-0.20) mg/dL AST (5-25) IU/L ALT (12-36) U/L Alkaline Phosphatase (56-112) IU/L Total Protein (6.0-8.0) g/dL Albumin (3.2-4.6) g/dL Urine Color Yellow (YELLOW) Urine Appearance Clear (CLEAR) Urine pH 8.0 H (5.0-6.5) Ur Specific [place] 1.010 (1.010-1.025) Urine Protein Negative (NEGATIVE) mg/dL Urine Glucose (UA) 50 H (NORMAL) mg/dL Urine Ketones Negative (NEGATIVE) mg/dL Urine Occult Blood Negative (NEGATIVE) Urine Nitrite Negative (NEGATIVE) Urine Bilirubin Negative (NEGATIVE) Urine Urobilinogen Normal (NEGATIVE) mg/dL Ur Leukocyte Esterase Negative (NEGATIVE) Urine RBC 0-5 (0-5) Urine WBC 0-5 (0-5) Ur Squamous Epith Cells Rare (NS,R,O) Urine Bacteria Occasional H (NS) Urine Mucus Few H (NS) Med Orders - Current: Current Medications Acetaminophen (Tylenol) 650 mg PO Q6H PRN PRN Reason: Fever Meropenem (Merrem) 1 gm IVPUSH Q8H [facility] Last Admin: 03/28/19 09:32 Dose: 1 gm Sodium Chloride (Saline Flush) 10 ml FLUSH ASDIRECTED PRN PRN Reason: Keep Vein Open Last Admin: 03/28/19 09:59 Dose: 10 ml Discontinued Medications Acetaminophen (Tylenol) 650 mg RECTAL NOW ONE Stop: 03/28/19 09:11 Last Admin: 03/28/19 09:34 Dose: 650 mg Al Hydroxide/Mg Hydroxide 15 (ml/ Lidocaine HCl 15 ml) 0 ml PO ONETIME ONE Stop: 03/28/19 00:15 Last Admin: 03/28/19 00:25 Dose: 30 ml Furosemide (Lasix) 40 mg IVPUSH NOW ONE Stop: 03/28/19 08:47 Last Admin: 03/28/19 08:59 Dose: 40 mg Sodium Chloride (Normal Saline) 1,000 mls @ 150 mls/hr IV ASDIRECTED [facility] Stop: 03/29/19 08:54 Last Admin: 03/28/19 04:20 Dose: 150 mls/hr Iopamidol (Isovue-370 (76%)) 100 ml IV . DIRECTED ONE Stop: 03/28/19 01:02 Last Admin: 03/28/19 01:23 Dose: 100 ml Lorazepam (Ativan) 0.25 mg IVPUSH ONETIME ONE Stop: 03/28/19 09:53 Last Admin: 03/28/19 09:58 Dose: 0.25 mg Pantoprazole Sodium (Protonix Iv) 80 mg IVPUSH .BOLUS ONE Stop: 03/28/19 02:15 Last Admin: 03/28/19 02:58 Dose: 80 mg - Exam Quality Assessment: Reports: Supplemental Oxygen General: Reports: Moderate Distress Neck: Reports: Supple, Trachea Midline Lungs: Reports: Decreased Breath Sounds, Crackles Cardiovascular: Reports: Tachycardia GI/Abdominal Exam: Normal Bowel Sounds, Soft (Male) Exam: Other (johnson in place)
[2019-03-28 11:12] VITALS: BP 142/80; PULSE 88
== END 2019-03-28 11:25 ==
LOC: FB.ED → FB.MS 02:14
PROVIDERS: ADMIT Family Medicine; ATTEND Family Medicine
DX: R10.13 Epigastric pain (principal); A41.9 Sepsis, unspecified organism; I95.9 Hypotension, unspecified; E87.2 Acidosis; E87.6 Hypokalemia; I25.10 Atherosclerotic heart disease of native coronary artery without angina pectoris; I10 Essential (primary) hypertension; I48.91 Unspecified atrial fibrillation; E78.00 Pure hypercholesterolemia, unspecified; K40.90 Unilateral inguinal hernia, without obstruction or gangrene, not specified as recurrent; Z87.891 Personal history of nicotine dependence; Z79.82 Long term (current) use of aspirin; Z79.01 Long term (current) use of anticoagulants; Z79.899 Other long term (current) drug therapy
CPT/HCPCS: 36415; 51702; 71045; 74174; 80048; 80076; 81001; 83605; 85025; 87040; 87077; 87086; 87186; 93005; 96361; 96374; 96375; 99284; A9270; C9113; G0378; J1940; J2060; J2185; J7030; Q9967

== ENCOUNTER 2019-04-07 16:07 | Emergency (ER) | payer MEDICARE, BC ==
[2019-04-07] MEDS ORDERED: Tamsulosin 0.4 MG Cap.ER PO ONE (18:39)
--- NOTE | 2019-04-07 18:45 | EDM.PDOC ---
ED HPI GENERAL MEDICAL PROBLEM - General Chief Complaint: Abdominal Pain Stated Complaint: UTI Time Seen by Provider: 04/07/19 16:15 Source of Information: Reports: Patient History Limitations: Reports: No Limitations - History of Present Illness INITIAL COMMENTS - FREE TEXT/NARRATIVE: Patient presented to the ED because of dysuria, suprapubic pain and left flank pain. there is no associated fever or chills. He is currently being treated with IV zosyn due to sepsis/bacteremia. Groin Pain Score (Numeric/FACES): 8 - Related Data Allergies Allergy/AdvReac Type Severity Reaction Status Date / Time No Known Allergies Allergy Verified 04/07/19 16:50 Home Meds: Home Meds Aspirin [Halfprin] 81 mg PO DAILY 03/16/16 [History] Docusate Sodium [Colace] 100 mg PO DAILY PRN 03/16/16 [History] Ergocalciferol (Vitamin D2) [Vitamin D] 400 units PO DAILY 03/16/16 [History] Lovastatin [Mevacor] 20 mg PO BEDTIME 03/16/16 [History] Lutein/Min/Vit C/Vit E Acetate [Ocuvite Lutein] 1 tab PO DAILY 03/16/16 [History ] Terazosin [Hytrin] 10 mg PO BEDTIME 03/16/16 [History] Timolol Maleate [Timoptic 0.5% Ophth Soln] 1 drop EYERT DAILY 03/16/16 [History] amLODIPine [Norvasc] 5 mg PO BID 03/16/16 [History] Ipratropium [Atrovent 0.03% Nasal [place]] 2 spray NS BID PRN 11/06/18 [History] Latanoprost [Xalatan] 1 drop EYERT BEDTIME 11/06/18 [History] Leg Vein Essentials 1 cap PO DAILY 03/28/19 [History] Losartan/Hydrochlorothiazide [Losartan-HCTZ 100-12.5 MG] 1 tab PO DAILY [History] Metoprolol Succinate [Toprol XL] 25 mg PO DAILY 03/28/19 [History] Pantoprazole [ProTONIX] 40 mg PO DAILY 03/28/19 [History] Warfarin [Coumadin] 2.5 mg PO WE@1800 03/28/19 [History] Warfarin [Coumadin] 3.75 mg PO SUMOTUTHFRSA@1800 03/28/19 [History] Tamsulosin [Tamsulosin 24 Hr] 0.4 mg PO DAILY #10 cap.er 04/07/19 [Rx] traMADol [Ultram] 50 mg PO Q6H PRN #15 tab 04/07/19 [Rx] Past Medical History HEENT History: Reports: Cataract, Glaucoma, Hard of Hearing Cardiovascular History: Reports: Arrhythmia, CAD, High Cholesterol, Hypertension , PVD Other Cardiovascular History: 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 Gastrointestinal History: Reports: Chronic Constipation Genitourinary History: Reports: BPH, Prostate Disorder, Renal Calculus, UTI, Recurrent Musculoskeletal History: Reports: Arthritis, Osteoarthritis Other Musculoskeletal History: LEFT ING HERNIA Psychiatric History: Reports: Depression Other Psychiatric History: MALAISE AND FATIGUE Other Hematologic History: HYPERLIPIDEMIA Oncologic (Cancer) History: Reports: Prostate Other Oncologic History: MALIGNANT NEOPLASM OF PROSTATE - Past Surgical History HEENT Surgical History: Reports: Cataract Surgery Other HEENT Surgeries/Procedures: L bilat cataract GI Surgical History: Reports: Appendectomy, Hernia, Inguinal Other GI Surgeries/Procedures: L hernia repair Male Surgical History: Reports: Renal Calculus Social & Family History - Family History Family Medical History: Noncontributory - Tobacco Use Smoking Status *Q: Never Smoker Second Hand Smoke Exposure: No - Caffeine Use Caffeine Use: Reports: None - Recreational Drug Use Recreational Drug Use: No - Living Situation & Occupation Living situation: Reports: Occupation: Retired ED ROS GENERAL - Review of Systems Review Of Systems: See Below Constitutional: Reports: No Symptoms HEENT: Reports: No Symptoms Respiratory: Reports: No Symptoms Cardiovascular: Reports: No Symptoms Endocrine: Reports: No Symptoms GI/Abdominal: Reports: No Symptoms : Reports: Dysuria, Flank Pain, Urgency Musculoskeletal: Reports: No Symptoms Skin: Reports: No Symptoms Neurological: Reports: No Symptoms ED EXAM, RENAL/ - Physical Exam Exam: See Below Exam Limited By: No Limitations General Appearance: Alert, No Apparent Distress Eye Exam: Bilateral Eye: PERRL Ears: Normal External Exam, Normal Canal, Hearing Grossly Normal Nose: Normal Inspection, Normal Mucosa, No Blood Throat/Mouth: Normal Inspection, Normal Lips, Normal Teeth, Normal Gums Head: Atraumatic, Normocephalic Neck: Normal Inspection, Supple, Non-Tender, Full Range of Motion Respiratory/Chest: No Respiratory Distress, Lungs Clear, Normal Breath Sounds, No Accessory Muscle Use, Chest Non-Tender Cardiovascular: Normal Peripheral Pulses, Regular Rate, Rhythm, No Edema, No Gallop, No Murmur, No Rub GI/Abdominal: Normal Bowel Sounds, Soft, Non-Tender, No Organomegaly, Other ( tenderness suprapupib area) (Male) Exam: No Hernia, Normal Inspection Course - Vital Signs Text/Narrative:: bladder scan-almost 1 L of post voidal urine Indwelling leg bag catheter was placed started on flomax UA-neg Last Recorded V/S: Last Vital Signs Temp 36.6 C 04/07/19 16:10 Pulse 80 04/07/19 18:00 Resp 18 04/07/19 18:00 BP 140/82 04/07/19 18:00 Pulse Ox 98 04/07/19 18:00 - Orders/Labs/Meds Orders: Active Orders 24 hr Category Date Time Status Bladder Scan [RC] ASDIRECTED Care 04/07/19 16:26 Active Muñoz Catheter Insertion [Insert Urinary Catheter] [OM. Care 04/07/19 17:00 Ordered PC] Q24H Urinary Catheter Assessment [RC] QSHIFT Care 04/07/19 16:47 Active Abdomen Pelvis wo Cont [CT] Stat Exams 04/07/19 16:25 Taken Labs: Laboratory Tests 04/07/19 04/07/19 04/07/19 Range/Units 16:11 16:39 16:39 WBC 8.2 (4.5-12.0) X10-3/uL RBC 4.03 L (4.30-5.75) x10(6)uL Hgb 12.9 L (13.5-17.8) g/dL Hct 38.5 (30.0-51.3) % MCV 95.5 (80-96) fL MCH 32.0 (27.7-33.6) pg MCHC 33.5 (32.2-35.4) g/dL RDW 13.4 (11.5-15.5) % Plt Count 278 (125-369) X10(3)uL MPV 8.9 (7.4-10.4) fL Neut % (Auto) 73.6 (46-82) % Lymph % (Auto) 17.7 (13-37) % [place] % (Auto) 6.3 (4-12) % Eos % (Auto) 2 (1.0-5.0) % Baso % (Auto) 1 (0-2) % Neut # (Auto) 6.1 (1.6-8.3) # Lymph # (Auto) 1.4 (0.6-5.0) # [place] # (Auto) 0.5 (0.0-1.3) # Eos # (Auto) 0.1 (0.0-0.8) # Baso # (Auto) 0.1 (0.0-0.2) # Sodium 142 (135-145) mmol/L Potassium 3.3 L (3.5-5.3) mmol/L Chloride 105 D (100-110) mmol/L Carbon Dioxide 27 (21-32) mmol/L BUN 9 (7-18) mg/dL Creatinine 1.1 (0.70-1.30) mg/dL Est Cr Clr Drug Dosing TNP Estimated GFR (MDRD) > 60 (>60) BUN/Creatinine Ratio 8.2 L (9-20) Glucose 120 H (80-116) mg/dL Calcium 9.1 (8.6-10.2) mg/dL Urine Color Yellow (YELLOW) Urine Appearance Clear (CLEAR) Urine pH 6.5 (5.0-6.5) Ur Specific [place] 1.015 (1.010-1.025) Urine Protein Negative (NEGATIVE) mg/dL Urine Glucose (UA) Normal (NORMAL) mg/dL Urine Ketones Negative (NEGATIVE) mg/dL Urine Occult Blood Negative (NEGATIVE) Urine Nitrite Negative (NEGATIVE) Urine Bilirubin Negative (NEGATIVE) Urine Urobilinogen Normal (NEGATIVE) mg/dL Ur Leukocyte Esterase Negative (NEGATIVE) Urine RBC 0-5 (0-5) Urine WBC 0-5 (0-5) Ur Squamous Epith Cells Few H (NS,R,O) Urine Bacteria Few H (NS) Urine Mucus Few H (NS) Meds: Medications Discontinued Medications Generic Name Dose Route Start Last Admin Trade Name Freq PRN Reason Stop Dose Admin Tamsulosin HCl 0.4 mg 04/07/19 18:39 04/07/19 19:00 Flomax PO 04/07/19 18:40 0.4 mg ONETIME ONE Administration Departure - Departure Time of Disposition: 18:40 Disposition: Home, Self-Care 01 Condition: Good Clinical Impression: Nephrolithiasis, Urinary retention, BPH (benign prostatic hyperplasia) - Discharge Information Prescriptions: Tamsulosin [Tamsulosin 24 Hr] 0.4 mg PO DAILY #10 cap.er traMADol [Ultram] 50 mg PO Q6H PRN #15 tab PRN Reason: Pain Instructions: Kidney Stones, [id number], Acute Urinary Retention, Male Referrals: Arsalan York PA [Primary Care Provider] - Forms: ED Department Discharge Additional Instructions: please read discharge instructions on kidney stone and urinary retention increase oral fluids flomax take 1 tablet daily tramadol 50 mg, take 1 tablet every 6 hours as needed for pain follow up with your doctor this coming week - My Orders Last 24 Hours: My Active Orders 04/07/19 16:25 Abdomen Pelvis wo Cont [CT] Stat 04/07/19 16:26 Bladder Scan [RC] ASDIRECTED 04/07/19 16:47 Urinary Catheter Assessment [RC] QSHIFT 04/07/19 17:00 Muñoz Catheter Insertion [Insert Urinary Catheter] [OM.PC] Q24H - Assessment/Plan Last 24 Hours: My Active Orders 04/07/19 16:25 Abdomen Pelvis wo Cont [CT] Stat 04/07/19 16:26 Bladder Scan [RC] ASDIRECTED 04/07/19 16:47 Urinary Catheter Assessment [RC] QSHIFT 04/07/19 17:00 Muñoz Catheter Insertion [Insert Urinary Catheter] [OM.PC] Q24H
[2019-04-07 22:14] VITALS: BP 140/82; PULSE 80
== END 2019-04-07 19:05 | disposition home or self-care (01) ==
LOC: FB.ED 16:07
DX: N20.0 Calculus of kidney (principal); N40.1 Benign prostatic hyperplasia with lower urinary tract symptoms; R33.8 Other retention of urine; I25.10 Atherosclerotic heart disease of native coronary artery without angina pectoris; I10 Essential (primary) hypertension; E78.5 Hyperlipidemia, unspecified; Z79.82 Long term (current) use of aspirin; Z79.01 Long term (current) use of anticoagulants; Z79.899 Other long term (current) drug therapy
CPT/HCPCS: 36415; 51702; 51798; 74176; 80048; 81001; 85025; 99284; A9270

== ENCOUNTER 2019-04-12 13:03 | Emergency (ER) | payer MEDICARE, BC ==
[2019-04-12] MEDS ORDERED: Amoxicillin/Clavulanate K 875-125 MG Tab PO ONE (13:04)
--- NOTE | 2019-04-12 13:40 | EDM.PDOC ---
ED HPI GENERAL MEDICAL PROBLEM - General Stated Complaint: GENTIALS KANGEN Time Seen by Provider: 04/12/19 13:15 Source of Information: Reports: Patient, Family History Limitations: Reports: Other (dementia. ) - History of Present Illness INITIAL COMMENTS - FREE TEXT/NARRATIVE: pt with dementia comes from home with his daughter with concerns for urinary retention and swelling at his penis, pt had a folly catheter that was removed yesterday and toward the evening he started noticing swelling and pain at tip of his penis along with drippiling and difficulties voiding, pt denies new medications , denies fever or chills , and beside he above there are no other medical concerns. - Related Data Allergies Allergy/AdvReac Type Severity Reaction Status Date / Time No Known Allergies Allergy Verified 04/07/19 16:50 Home Meds: Home Meds Aspirin [Halfprin] 81 mg PO DAILY 03/16/16 [History] Docusate Sodium [Colace] 100 mg PO DAILY PRN 03/16/16 [History] Ergocalciferol (Vitamin D2) [Vitamin D] 400 units PO DAILY 03/16/16 [History] Lovastatin [Mevacor] 20 mg PO BEDTIME 03/16/16 [History] Lutein/Min/Vit C/Vit E Acetate [Ocuvite Lutein] 1 tab PO DAILY 03/16/16 [History ] Terazosin [Hytrin] 10 mg PO BEDTIME 03/16/16 [History] Timolol Maleate [Timoptic 0.5% Ophth Soln] 1 drop EYERT DAILY 03/16/16 [History] amLODIPine [Norvasc] 5 mg PO BID 03/16/16 [History] Ipratropium [Atrovent 0.03% Nasal [place]] 2 spray NS BID PRN 11/06/18 [History] Latanoprost [Xalatan] 1 drop EYERT BEDTIME 11/06/18 [History] Leg Vein Essentials 1 cap PO DAILY 03/28/19 [History] Losartan/Hydrochlorothiazide [Losartan-HCTZ 100-12.5 MG] 1 tab PO DAILY [History] Metoprolol Succinate [Toprol XL] 25 mg PO DAILY 03/28/19 [History] Pantoprazole [ProTONIX] 40 mg PO DAILY 03/28/19 [History] Warfarin [Coumadin] 2.5 mg PO WE@1800 03/28/19 [History] Warfarin [Coumadin] 3.75 mg PO JAMIETPHILLYFRSA@1800 03/28/19 [History] Tamsulosin [Tamsulosin 24 Hr] 0.4 mg PO DAILY #10 cap.er 04/07/19 [Rx] traMADol [Ultram] 50 mg PO Q6H PRN #15 tab 04/07/19 [Rx] Past Medical History HEENT History: Reports: Cataract, Glaucoma, Hard of Hearing Cardiovascular History: Reports: Arrhythmia, CAD, High Cholesterol, Hypertension , PVD Other Cardiovascular History: 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 Gastrointestinal History: Reports: Chronic Constipation Genitourinary History: Reports: BPH, Prostate Disorder, Renal Calculus, UTI, Recurrent Musculoskeletal History: Reports: Arthritis, Osteoarthritis Other Musculoskeletal History: LEFT ING HERNIA Psychiatric History: Reports: Depression Other Psychiatric History: MALAISE AND FATIGUE Other Hematologic History: HYPERLIPIDEMIA Oncologic (Cancer) History: Reports: Prostate Other Oncologic History: MALIGNANT NEOPLASM OF PROSTATE - Past Surgical History HEENT Surgical History: Reports: Cataract Surgery Other HEENT Surgeries/Procedures: L bilat cataract GI Surgical History: Reports: Appendectomy, Hernia, Inguinal Other GI Surgeries/Procedures: L hernia repair Male Surgical History: Reports: Renal Calculus Social & Family History - Family History Family Medical History: Noncontributory - Caffeine Use Caffeine Use: Reports: None - Living Situation & Occupation Living situation: Reports: Occupation: Retired ED ROS GENERAL - Review of Systems Review Of Systems: See Below Constitutional: Reports: No Symptoms Respiratory: Reports: No Symptoms Cardiovascular: Reports: No Symptoms GI/Abdominal: Reports: No Symptoms ED EXAM, GENERAL - Physical Exam Exam: See Below Exam Limited By: No Limitations General Appearance: Alert, No Apparent Distress Respiratory/Chest: No Respiratory Distress, Lungs Clear, Normal Breath Sounds Cardiovascular: Normal Peripheral Pulses, Regular Rate, Rhythm, No Edema GI/Abdominal: Normal Bowel Sounds, Soft, Non-Tender (Male) Exam: Suprapubic Fullness, Other (soft tissue swelling/ edema and tendernss / erythema noted all around the penis gland , no discharge noted. ). No: Scrotal Swelling, Scrotum Tenderness (L), Scrotum Tenderness (R), Testicular Mass, Testicular Tenderness (L), Testicular Tenderness (R), Urethral Discharge Extremities: Normal Inspection, Other (mild erythema at medial side of left ankle/leg was noted, no enduration, or warmth or tendernss , no calf tendernss or leg edema. ) Neurological: Alert, Oriented, CN II-XII Intact Course - Vital Signs Text/Narrative:: with scan pt had 600 cc in his bladder. 14 pk catheter was placed. pt seems to have soft tissue cellulitis causing mechanical obstruction. pt was given Rocephin 1 gm and will be started on Augmentin. pt to follow with PCP in 2 days for re-check. - Orders/Labs/Meds Orders: Active Orders 24 hr Category Date Time Status Bladder Scan [RC] ASDIRECTED Care 04/12/19 13:38 Active Insert Urinary Catheter [OM.PC] Q24H Care 04/12/19 13:45 Ordered Urinary Catheter Assessment [RC] [facility] 04/12/19 13:38 Active UA W/MICROSCOPIC [URIN] Stat Lab 04/12/19 13:37 Received Departure - Departure Time of Disposition: 13:46 Disposition: Home, Self-Care 01 Clinical Impression: Penis, cellulitis - Discharge Information Referrals: Gary Almonte MD [Primary Care Provider] - - My Orders Last 24 Hours: My Active Orders 04/12/19 13:37 UA W/MICROSCOPIC [URIN] Stat 04/12/19 13:38 Bladder Scan [RC] ASDIRECTED Urinary Catheter Assessment [RC] [facility] 04/12/19 13:45 Insert Urinary Catheter [OM.PC] Q24H - Assessment/Plan Last 24 Hours: My Active Orders 04/12/19 13:37 UA W/MICROSCOPIC [URIN] Stat 04/12/19 13:38 Bladder Scan [RC] ASDIRECTED Urinary Catheter Assessment [RC] [facility] 04/12/19 13:45 Insert Urinary Catheter [OM.PC] Q24H
[2019-04-12] MEDS ORDERED: cefTRIAXone 1 GM Vial IM ONE (13:46)
[2019-04-12 17:19] VITALS: BP 149/73; PULSE 89
== END 2019-04-12 14:40 | disposition home or self-care (01) ==
LOC: FB.ED 13:03
DX: N48.22 Cellulitis of corpus cavernosum and penis (principal); E78.00 Pure hypercholesterolemia, unspecified; I10 Essential (primary) hypertension; N40.0 Benign prostatic hyperplasia without lower urinary tract symptoms; I25.10 Atherosclerotic heart disease of native coronary artery without angina pectoris; Z79.82 Long term (current) use of aspirin; Z79.899 Other long term (current) drug therapy; Z79.01 Long term (current) use of anticoagulants
CPT/HCPCS: 51702; 51798; 81001; 96372; 99284; A9270; J0696

== ENCOUNTER 2019-09-07 17:11 | Emergency (ER) | payer MEDICARE, BC ==
[2019-09-07 17:40] VITALS: BP 110/66; PULSE 81
--- NOTE | 2019-09-07 18:02 | EDM.PDOC ---
ED HPI GENERAL MEDICAL PROBLEM - General Chief Complaint: Genitourinary Problem Stated Complaint: CATHETER ISSUES Time Seen by Provider: 09/07/19 17:50 Source of Information: Reports: Patient History Limitations: Reports: No Limitations - History of Present Illness INITIAL COMMENTS - FREE TEXT/NARRATIVE: Km comes into [facility] ED with some blood from the penis where a Muñoz catheter was replaced earlier today. Apparently the baloon was possibly not inserted into the bladder when inflated, with subsequent active BRB appearing at the meatus. Upon deflation and reinsertion farther into the urethra, reinflation of the baloon was successful, and bleeding slowed and eventually stopped. The urine in the leg bag is greg and draining normally, but appearance of residual blood is alarming to the patient. The Muñoz catheter irrigates normally with clear returns. A UA will be obtained. - Related Data Allergies Allergy/AdvReac Type Severity Reaction Status Date / Time No Known Allergies Allergy Verified 04/07/19 16:50 Home Meds: Home Meds Aspirin [Halfprin] 81 mg PO DAILY 03/16/16 [History] Docusate Sodium [Colace] 100 mg PO DAILY PRN 03/16/16 [History] Ergocalciferol (Vitamin D2) [Vitamin D] 400 units PO DAILY 03/16/16 [History] Lovastatin [Mevacor] 20 mg PO BEDTIME 03/16/16 [History] Lutein/Min/Vit C/Vit E Acetate [Ocuvite Lutein] 1 tab PO DAILY 03/16/16 [History ] Terazosin [Hytrin] 10 mg PO BEDTIME 03/16/16 [History] amLODIPine [Norvasc] 5 mg PO BID 03/16/16 [History] timoloL maleate [Timoptic 0.5% Ophth Soln] 1 drop EYERT DAILY 03/16/16 [History] Ipratropium [Atrovent 0.03% Nasal [employer]] 2 spray NS BID PRN 11/06/18 [History] Latanoprost [Xalatan] 1 drop EYERT BEDTIME 11/06/18 [History] Leg Vein Essentials 1 cap PO DAILY 03/28/19 [History] Losartan/Hydrochlorothiazide [Losartan-HCTZ 100-12.5 MG] 1 tab PO DAILY [History] Metoprolol Succinate [Toprol XL] 25 mg PO DAILY 03/28/19 [History] Pantoprazole [ProTONIX] 40 mg PO DAILY 03/28/19 [History] Warfarin [Coumadin] 2.5 mg PO WE@1800 03/28/19 [History] Warfarin [Coumadin] 3.75 mg PO JAMIETCHRISTOS@1800 03/28/19 [History] Tamsulosin [Tamsulosin 24 Hr] 0.4 mg PO DAILY #10 cap.er 04/07/19 [Rx] traMADol [Ultram] 50 mg PO Q6H PRN #15 tab 04/07/19 [Rx] Amoxicillin/Clavulanate K [Augmentin 875-125 MG] 1 tab PO BID #20 tablet [Rx] Past Medical History HEENT History: Reports: Cataract, Glaucoma, Hard of Hearing Cardiovascular History: Reports: Arrhythmia, CAD, High Cholesterol, Hypertension , PVD Other Cardiovascular History: 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 Gastrointestinal History: Reports: Chronic Constipation Genitourinary History: Reports: BPH, Prostate Disorder, Renal Calculus, UTI, Recurrent Musculoskeletal History: Reports: Arthritis, Osteoarthritis Other Musculoskeletal History: LEFT ING HERNIA Psychiatric History: Reports: Depression Other Psychiatric History: MALAISE AND FATIGUE Other Hematologic History: HYPERLIPIDEMIA Oncologic (Cancer) History: Reports: Prostate Other Oncologic History: MALIGNANT NEOPLASM OF PROSTATE - Past Surgical History HEENT Surgical History: Reports: Cataract Surgery Other HEENT Surgeries/Procedures: L bilat cataract GI Surgical History: Reports: Appendectomy, Hernia, Inguinal Other GI Surgeries/Procedures: L hernia repair Male Surgical History: Reports: Renal Calculus Social & Family History - Family History Family Medical History: Noncontributory - Caffeine Use Caffeine Use: Reports: None - Living Situation & Occupation Living situation: Reports: Occupation: Retired ED ROS GENERAL - Review of Systems Review Of Systems: Comprehensive ROS is negative, except as noted in HPI. ED EXAM, RENAL/ - Physical Exam Exam: See Below Exam Limited By: Other (hearing loss) General Appearance: Alert, WD/WN, No Apparent Distress, Anxious Head: Normocephalic Neck: Normal Inspection, Supple, Non-Tender, Full Range of Motion Respiratory/Chest: Lungs Clear, Chest Non-Tender Cardiovascular: Regular Rate, Rhythm, No Murmur GI/Abdominal: Normal Bowel Sounds, Soft, Non-Tender, No Organomegaly, No Distention, No Mass (Male) Exam: No Hernia, Normal Inspection, Circumcised Rectal (Males) Exam: BPH Back Exam: Normal Inspection Extremities: Normal Inspection Neurological: Alert, CN II-XII Intact, No Motor/Sensory Deficits Psychiatric: Normal Affect, Anxious Skin Exam: Warm, Dry, Intact, Normal Color, No Rash Lymphatic: No Adenopathy Course - Vital Signs Text/Narrative:: The Muñoz cath is functioning normally. A UA noted some debris, and a UC will be set up. Last Recorded V/S: Last Vital Signs Temp 36.9 C 09/07/19 17:35 Pulse 81 09/07/19 17:35 Resp 16 09/07/19 17:35 BP 110/66 09/07/19 17:35 Pulse Ox 97 09/07/19 17:35 - Orders/Labs/Meds Orders: Active Orders 24 hr Category Date Time Status CULTURE URINE [RM] Stat Lab 09/07/19 18:30 Ordered Labs: Laboratory Tests 09/07/19 Range/Units 18:15 Urine Color Yellow (YELLOW) Urine Appearance Slightly cloudy (CLEAR) Urine pH 5.0 (5.0-6.5) Ur Specific [place] 1.020 (1.010-1.025) Urine Protein 30 H (NEGATIVE) mg/dL Urine Glucose (UA) Normal (NORMAL) mg/dL Urine Ketones Negative (NEGATIVE) mg/dL Urine Occult Blood Large H (NEGATIVE) Urine Nitrite Negative (NEGATIVE) Urine Bilirubin Negative (NEGATIVE) Urine Urobilinogen Normal (NEGATIVE) mg/dL Ur Leukocyte Esterase Large H (NEGATIVE) Urine RBC 5-10 H (0-5) Urine WBC 10-20 H (0-5) Ur Squamous Epith Cells Occasional (NS,R,O) Urine Bacteria Few H (NS) Coarse Granular Casts Few H (NS) Departure - Departure Time of Disposition: 18:31 Disposition: Home, Self-Care 01 Condition: Good Clinical Impression: Bloody discharge from penis BPH (benign prostatic hyperplasia) Qualifiers: Lower urinary tract symptom presence: symptoms present Lower urinary tract symptom detail: unspecified Qualified Code(s): N40.1 - Benign prostatic hyperplasia with lower urinary tract symptoms - Discharge Information *PRESCRIPTION DRUG MONITORING PROGRAM REVIEWED*: Not Applicable *COPY OF PRESCRIPTION DRUG MONITORING REPORT IN PATIENT LEONEL: Not Applicable Referrals: Arsalan York PA [Primary Care Provider] - Forms: ED Department Discharge Sepsis Event Note - Evaluation Sepsis Screening Result: No Definite Risk - Focused Exam Vital Signs: Vital Signs Temp Pulse Resp BP Pulse Ox 09/07/19 17:35 36.9 C 81 16 110/66 97 Date Exam was Performed: 09/07/19 Time Exam was Performed: 18:30 - Problem List & Annotations (1) BPH (benign prostatic hyperplasia) SNOMED Code(s): 369790939 Code(s): N40.0 - BENIGN PROSTATIC HYPERPLASIA WITHOUT LOWER URINRY TRACT SYMP Status: Acute Current Visit: Yes Annotation/Comment:: Follow up with Urology Qualifiers: Lower urinary tract symptom presence: symptoms present Lower urinary tract symptom detail: unspecified Qualified Code(s): N40.1 - Benign prostatic hyperplasia with lower urinary tract symptoms (2) Bloody discharge from penis SNOMED Code(s): 5307696 Code(s): R36.9 - URETHRAL DISCHARGE, UNSPECIFIED Status: Acute Current Visit: Yes Annotation/Comment:: The UA noted nitrites and WBCs, and a UC is set up. No active bleeding from prior catheter change is apparent at this time. - Problem List Review Problem List Initiated/Reviewed/Updated: Yes - My Orders Last 24 Hours: My Active Orders 09/07/19 18:30 CULTURE URINE [RM] Stat - Assessment/Plan Last 24 Hours: My Active Orders 09/07/19 18:30 CULTURE URINE [RM] Stat Plan: Follow up with PCP. No antibx dispensed pending results of UC.
== END 2019-09-07 19:51 | disposition home or self-care (01) ==
LOC: FB.ED 17:11
DX: N48.89 Other specified disorders of penis (principal); N40.1 Benign prostatic hyperplasia with lower urinary tract symptoms; I10 Essential (primary) hypertension; I25.10 Atherosclerotic heart disease of native coronary artery without angina pectoris; E78.00 Pure hypercholesterolemia, unspecified; M19.90 Unspecified osteoarthritis, unspecified site; F32.9 Major depressive disorder, single episode, unspecified; Z79.82 Long term (current) use of aspirin; Z79.899 Other long term (current) drug therapy
CPT/HCPCS: 81001; 87086; 87088; 87186; 99282; 99283

== ENCOUNTER 2019-09-08 09:58 | Emergency (ER) | payer MEDICARE, BC | END 2019-09-08 10:20 | disposition home or self-care (01) | LOC: FB.EDOUT 09:58 → FB.ED 09:58 → FB.EDOUT 10:20 | DX: Z53.21 Procedure and treatment not carried out due to patient leaving prior to being seen by health care provider (principal) ==

== ENCOUNTER 2019-09-28 17:11 | Emergency (ER) | payer MEDICARE, BC ==
[2019-09-28] MEDS ORDERED: Lidocaine 2% HCl 6 ML JEL.PF.APP MM ONE (17:54)
[2019-09-28 18:52] VITALS: BP 130/76; PULSE 75
--- NOTE | 2019-09-28 18:52 | EDM.PDOC ---
ED HPI GENERAL MEDICAL PROBLEM - General Chief Complaint: Genitourinary Problem Stated Complaint: SENT FROM THE CLINIC Time Seen by Provider: 09/28/19 18:47 Source of Information: Reports: Patient, Family History Limitations: Reports: No Limitations - History of Present Illness INITIAL COMMENTS - FREE TEXT/NARRATIVE: Patient was seen in the clinic today for Muñoz catheter replacement. Apparently after the catheter was placed, the patient had pain with balloon inflation and then blood began draining through the catheter. He was sent for definitive placement of the urinary catheter. He denies any complaints at this time. He has a Urology appointment in 2 months. Onset: Today - Related Data Allergies Allergy/AdvReac Type Severity Reaction Status Date / Time No Known Allergies Allergy Verified 04/07/19 16:50 Home Meds: Home Meds Aspirin [Halfprin] 81 mg PO DAILY 03/16/16 [History] Docusate Sodium [Colace] 100 mg PO DAILY PRN 03/16/16 [History] Ergocalciferol (Vitamin D2) [Vitamin D] 400 units PO DAILY 03/16/16 [History] Lovastatin [Mevacor] 20 mg PO BEDTIME 03/16/16 [History] Lutein/Min/Vit C/Vit E Acetate [Ocuvite Lutein] 1 tab PO DAILY 03/16/16 [History ] Terazosin [Hytrin] 10 mg PO BEDTIME 03/16/16 [History] amLODIPine [Norvasc] 5 mg PO BID 03/16/16 [History] timoloL maleate [Timoptic 0.5% Ophth Soln] 1 drop EYERT DAILY 03/16/16 [History] Ipratropium [Atrovent 0.03% Nasal [place]] 2 spray NS BID PRN 11/06/18 [History] Latanoprost [Xalatan] 1 drop EYERT BEDTIME 11/06/18 [History] Leg Vein Essentials 1 cap PO DAILY 03/28/19 [History] Losartan/Hydrochlorothiazide [Losartan-HCTZ 100-12.5 MG] 1 tab PO DAILY [History] Metoprolol Succinate [Toprol XL] 25 mg PO DAILY 03/28/19 [History] Pantoprazole [ProTONIX] 40 mg PO DAILY 03/28/19 [History] Warfarin [Coumadin] 2.5 mg PO WE@1800 03/28/19 [History] Warfarin [Coumadin] 3.75 mg PO ÁNGEL@1800 03/28/19 [History] Tamsulosin [Tamsulosin 24 Hr] 0.4 mg PO DAILY #10 cap.er 04/07/19 [Rx] traMADol [Ultram] 50 mg PO Q6H PRN #15 tab 04/07/19 [Rx] Amoxicillin/Clavulanate K [Augmentin 875-125 MG] 1 tab PO BID #20 tablet [Rx] Cefuroxime [Ceftin] 250 mg PO BID #20 tab 09/28/19 [Rx] Past Medical History HEENT History: Reports: Cataract, Glaucoma, Hard of Hearing Cardiovascular History: Reports: Arrhythmia, CAD, High Cholesterol, Hypertension , PVD Other Cardiovascular History: 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 Gastrointestinal History: Reports: Chronic Constipation Genitourinary History: Reports: BPH, Prostate Disorder, Renal Calculus, UTI, Recurrent Musculoskeletal History: Reports: Arthritis, Osteoarthritis Other Musculoskeletal History: LEFT ING HERNIA Psychiatric History: Reports: Depression Other Psychiatric History: MALAISE AND FATIGUE Other Hematologic History: HYPERLIPIDEMIA Oncologic (Cancer) History: Reports: Prostate Other Oncologic History: MALIGNANT NEOPLASM OF PROSTATE - Past Surgical History HEENT Surgical History: Reports: Cataract Surgery Other HEENT Surgeries/Procedures: L bilat cataract GI Surgical History: Reports: Appendectomy, Hernia, Inguinal Other GI Surgeries/Procedures: L hernia repair Male Surgical History: Reports: Renal Calculus Social & Family History - Family History Family Medical History: Noncontributory - Caffeine Use Caffeine Use: Reports: None - Living Situation & Occupation Living situation: Reports: Occupation: Retired ED ROS GENERAL - Review of Systems Review Of Systems: Comprehensive ROS is negative, except as noted in HPI. ED EXAM, RENAL/ - Physical Exam Exam: See Below Exam Limited By: No Limitations General Appearance: Alert, WD/WN, No Apparent Distress Throat/Mouth: No Airway Compromise Head: Atraumatic, Normocephalic Neck: Full Range of Motion Respiratory/Chest: No Respiratory Distress GI/Abdominal: Soft, Non-Tender, No Distention (Male) Exam: Normal Inspection Extremities: Normal Range of Motion Neurological: Alert, Normal Cognition Skin Exam: Warm, Dry Course - Vital Signs Last Recorded V/S: Last Vital Signs Temp 36.7 C 09/28/19 17:30 Pulse 75 09/28/19 17:30 Resp 16 09/28/19 17:30 BP 130/76 09/28/19 17:30 Pulse Ox 98 09/28/19 17:30 - Orders/Labs/Meds Orders: Active Orders 24 hr Category Date Time Status Bladder Scan [RC] ASDIRECTED Care 09/28/19 17:53 Active Muñoz Catheter Insertion [Insert Urinary Catheter] [OM. Care 09/28/19 18:00 Ordered PC] Q24H Urinary Catheter Assessment [RC] QSHIFT Care 09/28/19 17:54 Active CULTURE URINE [RM] Stat Lab 09/28/19 18:53 Ordered Cefuroxime [Ceftin] Med 09/28/19 18:54 Once 250 mg PO ONETIME ONE Labs: Laboratory Tests 09/28/19 Range/Units 18:41 Urine Color Yellow (YELLOW) Urine Appearance Cloudy (CLEAR) Urine pH 5.0 (5.0-6.5) Ur Specific [employer] 1.020 (1.010-1.025) Urine Protein 30 H (NEGATIVE) mg/dL Urine Glucose (UA) Normal (NORMAL) mg/dL Urine Ketones Negative (NEGATIVE) mg/dL Urine Occult Blood Large H (NEGATIVE) Urine Nitrite Positive H (NEGATIVE) Urine Bilirubin Negative (NEGATIVE) Urine Urobilinogen Normal (NEGATIVE) mg/dL Ur Leukocyte Esterase Large H (NEGATIVE) Urine RBC 30-40 H (0-5) Urine WBC 30-40 H (0-5) Ur Squamous Epith Cells Few H (NS,R,O) Urine Bacteria Many H (NS) Meds: Medications Discontinued Medications Generic Name Dose Route Start Last Admin Trade Name Freq PRN Reason Stop Dose Admin Lidocaine HCl 6 ml 09/28/19 17:54 Glydo MM 09/28/19 17:55 .ONCE ONE - Re-Assessments/Exams Free Text/Narrative Re-Assessment/Exam: 09/28/19 18:55 16F coude urinary catheter was placed without difficulty. Departure - Departure Time of Disposition: 18:56 Disposition: Home, Self-Care 01 Condition: Good Clinical Impression: UTI, Urinary tract infectious disease, Urinary retention - Discharge Information *PRESCRIPTION DRUG MONITORING PROGRAM REVIEWED*: No *COPY OF PRESCRIPTION DRUG MONITORING REPORT IN PATIENT LEONEL: Not Applicable Prescriptions: Cefuroxime [Ceftin] 250 mg PO BID #20 tab Referrals: Arsalan York PA [Primary Care Provider] - 3 Days Forms: ED Department Discharge Additional Instructions: Fill the Ceftin prescription at [facility] and take as directed. Follow up with Dr. York next week. Return to the ER as needed. Sepsis Event Note - Focused Exam Vital Signs: Vital Signs Temp Pulse Resp BP Pulse Ox 09/28/19 17:30 36.7 C 75 16 130/76 98 Date Exam was Performed: 09/28/19 Time Exam was Performed: 18:55 - My Orders Last 24 Hours: My Active Orders 09/28/19 17:53 Bladder Scan [RC] ASDIRECTED 09/28/19 17:54 Urinary Catheter Assessment [RC] QSHIFT 09/28/19 18:00 Muñoz Catheter Insertion [Insert Urinary Catheter] [OM.PC] Q24H 09/28/19 18:53 CULTURE URINE [RM] Stat 09/28/19 18:54 Cefuroxime [Ceftin] 250 mg PO ONETIME ONE - Assessment/Plan Last 24 Hours: My Active Orders 09/28/19 17:53 Bladder Scan [RC] ASDIRECTED 09/28/19 17:54 Urinary Catheter Assessment [RC] QSHIFT 09/28/19 18:00 Muñoz Catheter Insertion [Insert Urinary Catheter] [OM.PC] Q24H 09/28/19 18:53 CULTURE URINE [RM] Stat 09/28/19 18:54 Cefuroxime [Ceftin] 250 mg PO ONETIME ONE
[2019-09-28] MEDS ORDERED: Cefuroxime 250 MG Tab PO ONE (18:54)
--- NOTE | 2019-09-30 15:23 | PCM.SN.2 ---
- Free Text/Narrative Note: Patient's son, Axel Scott, notified of urine culture results and the need to change the patient's antibiotic from Ceftin to Augmentin. The prescription was sent to [facility].
== END 2019-09-28 19:05 | disposition home or self-care (01) ==
LOC: FB.ED 17:11
DX: N39.0 Urinary tract infection, site not specified (principal); N40.1 Benign prostatic hyperplasia with lower urinary tract symptoms; R33.8 Other retention of urine; I25.10 Atherosclerotic heart disease of native coronary artery without angina pectoris; I10 Essential (primary) hypertension; F32.9 Major depressive disorder, single episode, unspecified; E78.5 Hyperlipidemia, unspecified; Z79.82 Long term (current) use of aspirin; Z79.01 Long term (current) use of anticoagulants; Z79.899 Other long term (current) drug therapy; M19.90 Unspecified osteoarthritis, unspecified site
CPT/HCPCS: 51702; 51798; 81001; 87086; 87088; 87186; 99283; A9270

== ENCOUNTER 2020-01-16 14:58 | Emergency (ER) | payer MEDICARE, BC ==
[2020-01-16] MEDS ORDERED: Lidocaine 2% HCl 6 ML JEL.PF.APP STA (15:27)
--- NOTE | 2020-01-16 16:02 | EDM.PDOC ---
ED HPI GENERAL MEDICAL PROBLEM - General Time Seen by Provider: 01/16/20 15:10 Source of Information: Reports: Patient History Limitations: Reports: No Limitations - History of Present Illness INITIAL COMMENTS - FREE TEXT/NARRATIVE: Patient presented to the ED because of dysuria and replacement of johnson. There is no fever,chills, flank pain,N/V. - Related Data Allergies Allergy/AdvReac Type Severity Reaction Status Date / Time No Known Allergies Allergy Verified 04/07/19 16:50 Home Meds: Home Meds Aspirin [Halfprin] 81 mg PO DAILY 03/16/16 [History] Docusate Sodium [Colace] 100 mg PO DAILY PRN 03/16/16 [History] Ergocalciferol (Vitamin D2) [Vitamin D] 400 units PO DAILY 03/16/16 [History] Lovastatin [Mevacor] 20 mg PO BEDTIME 03/16/16 [History] Lutein/Min/Vit C/Vit E Acetate [Ocuvite Lutein] 1 tab PO DAILY 03/16/16 [History] Terazosin [Hytrin] 10 mg PO BEDTIME 03/16/16 [History] amLODIPine [Norvasc] 5 mg PO BID 03/16/16 [History] timoloL maleate [Timoptic 0.5% Ophth Soln] 1 drop EYERT DAILY 03/16/16 [History] Ipratropium [Atrovent 0.03% Nasal [place]] 2 spray NS BID PRN 11/06/18 [History] Latanoprost [Xalatan] 1 drop EYERT BEDTIME 11/06/18 [History] Leg Vein Essentials 1 cap PO DAILY 03/28/19 [History] Losartan/Hydrochlorothiazide [Losartan-HCTZ 100-12.5 MG] 1 tab PO DAILY 03/28/19 [History] Metoprolol Succinate [Toprol XL] 25 mg PO DAILY 03/28/19 [History] Pantoprazole [ProTONIX] 40 mg PO DAILY 03/28/19 [History] Warfarin [Coumadin] 2.5 mg PO WE@1800 03/28/19 [History] Warfarin [Coumadin] 3.75 mg PO SUMOTUTHFRSA@1800 03/28/19 [History] Tamsulosin [Tamsulosin 24 Hr] 0.4 mg PO DAILY #10 cap.er 04/07/19 [Rx] traMADol [Ultram] 50 mg PO Q6H PRN #15 tab 04/07/19 [Rx] Amoxicillin/Clavulanate K [Augmentin 875-125 MG] 1 tab PO BID #20 tablet 04/12/19 [Rx] Amoxicillin/Clavulanate K [Augmentin 500-125 MG] 1 tab PO BID #20 tab 09/30/19 [Rx] Minocycline [Minocin] 50 mg PO BID #14 cap 01/16/20 [Rx] Nitrofurantoin Monohyd/M-Cryst [Macrobid 100 mg Capsule] 100 mg PO BID #14 capsule 01/16/20 [Rx] Phenazopyridine HCl [Pyridium] 100 mg PO BID #6 tablet 01/16/20 [Rx] Past Medical History HEENT History: Reports: Cataract, Glaucoma, Hard of Hearing Cardiovascular History: Reports: Arrhythmia, CAD, High Cholesterol, Hypertension, PVD Other Cardiovascular History: 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 Gastrointestinal History: Reports: Chronic Constipation Genitourinary History: Reports: BPH, Prostate Disorder, Renal Calculus, UTI, Recurrent Other Genitourinary History: johnson catheter since july 2019 Musculoskeletal History: Reports: Arthritis, Osteoarthritis Other Musculoskeletal History: LEFT ING HERNIA Psychiatric History: Reports: Depression Other Psychiatric History: MALAISE AND FATIGUE Other Hematologic History: HYPERLIPIDEMIA Oncologic (Cancer) History: Reports: Prostate Other Oncologic History: MALIGNANT NEOPLASM OF PROSTATE - Infectious Disease History Infectious Disease History: Reports: None - Past Surgical History HEENT Surgical History: Reports: Cataract Surgery Other HEENT Surgeries/Procedures: L bilat cataract GI Surgical History: Reports: Appendectomy, Hernia, Inguinal Other GI Surgeries/Procedures: L hernia repair Male Surgical History: Reports: Renal Calculus Social & Family History - Family History Family Medical History: Noncontributory - Caffeine Use Caffeine Use: Reports: None - Living Situation & Occupation Living situation: Reports: Occupation: Retired ED ROS GENERAL - Review of Systems Review Of Systems: See Below Constitutional: Reports: No Symptoms HEENT: Reports: No Symptoms Respiratory: Reports: No Symptoms Cardiovascular: Reports: No Symptoms Endocrine: Reports: No Symptoms GI/Abdominal: Reports: No Symptoms : Reports: Dysuria Musculoskeletal: Reports: No Symptoms Skin: Reports: No Symptoms ED EXAM, RENAL/ - Physical Exam Exam: See Below Exam Limited By: No Limitations General Appearance: Alert, No Apparent Distress Ears: Normal External Exam, Normal Canal, Hearing Grossly Normal Nose: Normal Inspection, Normal Mucosa Throat/Mouth: Normal Inspection, Normal Lips, Normal Teeth Head: Atraumatic, Normocephalic Neck: Normal Inspection, Supple, Non-Tender, Full Range of Motion Respiratory/Chest: No Respiratory Distress, Lungs Clear, Normal Breath Sounds Cardiovascular: Normal Peripheral Pulses, Regular Rate, Rhythm, No Edema, No Gallop, No JVD, No Murmur GI/Abdominal: Normal Bowel Sounds, Soft, Non-Tender, No Organomegaly Back Exam: Normal Inspection, Full Range of Motion Extremities: Normal Inspection, Normal Range of Motion Course - Vital Signs Text/Narrative:: Johnson inserted by ER nurse Last Recorded V/S: Last Vital Signs Temp 36.4 C 01/16/20 15:07 Pulse 91 01/16/20 15:07 Resp 16 01/16/20 15:07 BP 155/96 H 01/16/20 15:07 Pulse Ox 100 01/16/20 15:07 - Orders/Labs/Meds Orders: Active Orders 24 hr Category Date Time Status CULTURE URINE [RM] Stat Lab 01/16/20 16:14 Received Labs: Laboratory Tests 01/16/20 Range/Units 16:14 Urine Color Yellow (YELLOW) Urine Appearance Cloudy (CLEAR) Urine pH 6.5 (5.0-6.5) Ur Specific [place] 1.010 (1.010-1.025) Urine Protein Trace (NEGATIVE) mg/dL Urine Glucose (UA) Normal (NORMAL) mg/dL Urine Ketones Negative (NEGATIVE) mg/dL Urine Occult Blood Moderate H (NEGATIVE) Urine Nitrite Positive H (NEGATIVE) Urine Bilirubin Negative (NEGATIVE) Urine Urobilinogen Normal (NEGATIVE) mg/dL Ur Leukocyte Esterase Large H (NEGATIVE) Urine RBC 5-10 H (0-5) Urine WBC 20-30 H (0-5) Ur Squamous Epith Cells Occasional (NS,R,O) Urine Bacteria Many H (NS) Urine Mucus Few H (NS) Meds: Medications Discontinued Medications Generic Name Dose Route Start Last Admin Trade Name Freq PRN Reason Stop Dose Admin Lidocaine HCl 6 ml 01/16/20 15:27 01/16/20 15:44 Glydo .XX 01/16/20 15:28 6 ml STAT STA Administration Phenazopyridine HCl 200 mg 01/16/20 16:13 01/16/20 16:22 Urinary Pain Relief PO 01/16/20 16:14 200 mg NOW STA Administration Phenazopyridine HCl 190 mg 01/16/20 16:20 Urinary Pain Relief PO 01/16/20 16:21 .STK-MED ONE Departure - Departure Time of Disposition: 16:30 Disposition: Home, Self-Care 01 Condition: Good Clinical Impression: Johnson catheter problem, UTI (urinary tract infection) - Discharge Information Prescriptions: Nitrofurantoin Monohyd/M-Cryst [Macrobid 100 mg Capsule] 100 mg PO BID #14 capsule Minocycline [Minocin] 50 mg PO BID #14 cap Phenazopyridine HCl [Pyridium] 100 mg PO BID #6 tablet Instructions: Indwelling Urinary Catheter Insertion, Care After Referrals: Gary Almonte MD [Primary Care Provider] - Forms: ED Department Discharge Additional Instructions: Please read discharge instructions on indwelling catheter care Pyridium 100 mg twice daily for 3 days(for discomfort) Macrobid 1 tablet twice dailfor 7 days Minocycline 50 mg twice daily for 7 days Follow up as needed - My Orders Last 24 Hours: My Active Orders 01/16/20 16:14 CULTURE URINE [RM] Stat - Assessment/Plan Last 24 Hours: My Active Orders 01/16/20 16:14 CULTURE URINE [RM] Stat
[2020-01-16] MEDS ORDERED: Phenazopyridine 95 MG Tab PO STA (16:13)
[2020-01-16] MEDS ORDERED: Phenazopyridine 95 MG Tab PO ONE (16:20)
[2020-01-16 16:31] VITALS: BP 155/96; PULSE 91
== END 2020-01-16 17:00 | disposition home or self-care (01) ==
LOC: FB.ED 14:58
DX: N39.0 Urinary tract infection, site not specified (principal); T83.9XXA Unspecified complication of genitourinary prosthetic device, implant and graft, initial encounter; I25.10 Atherosclerotic heart disease of native coronary artery without angina pectoris; I10 Essential (primary) hypertension; E78.5 Hyperlipidemia, unspecified; M19.90 Unspecified osteoarthritis, unspecified site; Z79.899 Other long term (current) drug therapy; Z79.01 Long term (current) use of anticoagulants; Z79.82 Long term (current) use of aspirin
CPT/HCPCS: 51702; 81001; 87086; 87186; 99283; A9270

== ENCOUNTER 2020-03-09 08:06 | Emergency (ER) | payer MEDICARE, BC ==
--- NOTE | 2020-03-09 08:46 | EDM.PDOC ---
ED HPI GENERAL MEDICAL PROBLEM - General Chief Complaint: Genitourinary Problem Time Seen by Provider: 03/09/20 08:40 Source of Information: Reports: Patient History Limitations: Reports: No Limitations - History of Present Illness INITIAL COMMENTS - FREE TEXT/NARRATIVE: 85-year-old male with chronic indwelling Johnson secondary to urinary retention secondary to prostatic hypertrophy who reports at approximately 2 AM today he awoke and noticed that his Johnson catheter bag was somewhat full and he emptied it and went back to bed. He states he had a hard time going back to sleep but was able to go to sleep and then an approximate 4:30 AM awoke feeling wetness on his legs. Apparently, at that time, the Johnson catheter was leaking at the connection of the bag to the catheter and he presents now with his daughter because of concerns that it is not draining. He does not have any pain. He rates his pain as a 0/10. He does not have any abdominal distention. He has had no fevers or chills. He has been eating and drinking normally. He comes in with toilet paper and old socks wrapped around his catheter and tubing was quite soiled. He appears to be in no distress now. There is now some urine that is draining into the bag. There are no other associated signs or symptoms. There are no other modifying factors. Onset: Today (4:30 AM) Duration: Constant Location: Reports: Other (No pain.) Quality: Reports: Other (Not applicable.) Improves with: Reports: None Worsens with: Reports: None Context: Reports: Other Associated Symptoms: Reports: No Other Symptoms Treatments PAWN BROKER: Reports: Other (see below) (Nothing) - Related Data Allergies Allergy/AdvReac Type Severity Reaction Status Date / Time No Known Allergies Allergy Verified 03/09/20 08:42 Home Meds: Home Meds Aspirin [Halfprin] 81 mg PO DAILY 03/16/16 [History] Docusate Sodium [Colace] 100 mg PO DAILY PRN 03/16/16 [History] Ergocalciferol (Vitamin D2) [Vitamin D] 400 units PO DAILY 03/16/16 [History] Lovastatin [Mevacor] 20 mg PO BEDTIME 03/16/16 [History] Lutein/Min/Vit C/Vit E Acetate [Ocuvite Lutein] 1 tab PO DAILY 11/01/16 [Hist ory] Terazosin [Hytrin] 10 mg PO BEDTIME 03/16/16 [History] amLODIPine [Norvasc] 5 mg PO BID 03/16/16 [History] timoloL maleate [Timoptic 0.5% Ophth Soln] 1 drop EYERT DAILY 03/16/16 [History] Ipratropium [Atrovent 0.03% Nasal [place]] 2 spray NS BID PRN 11/06/18 [History] Latanoprost [Xalatan] 1 drop EYERT BEDTIME 11/06/18 [History] Leg Vein Essentials 1 cap PO DAILY 03/28/19 [History] Losartan/Hydrochlorothiazide [Losartan-HCTZ 100-12.5 MG] 1 tab PO DAILY 03/28/19 [History] Metoprolol Succinate [Toprol XL] 25 mg PO DAILY 03/28/19 [History] Pantoprazole [ProTONIX] 40 mg PO DAILY 03/28/19 [History] Warfarin [Coumadin] 2.5 mg PO WE@1800 03/28/19 [History] Warfarin [Coumadin] 3.75 mg PO SUMOTUTHFRSA@1800 03/28/19 [History] Tamsulosin [Tamsulosin 24 Hr] 0.4 mg PO DAILY #10 cap.er 04/07/19 [Rx] traMADol [Ultram] 50 mg PO Q6H PRN #15 tab 04/07/19 [Rx] Amoxicillin/Clavulanate K [Augmentin 875-125 MG] 1 tab PO BID #20 tablet 04/12/19 [Rx] Amoxicillin/Clavulanate K [Augmentin 500-125 MG] 1 tab PO BID #20 tab 09/30/19 [Rx] Minocycline [Minocin] 50 mg PO BID #14 cap 01/16/20 [Rx] Nitrofurantoin Monohyd/M-Cryst [Macrobid 100 mg Capsule] 100 mg PO BID #14 capsule 01/16/20 [Rx] Phenazopyridine HCl [Pyridium] 100 mg PO BID #6 tablet 01/16/20 [Rx] Past Medical History HEENT History: Reports: Cataract, Glaucoma, Hard of Hearing Cardiovascular History: Reports: Arrhythmia, CAD, High Cholesterol, Hypertension, PVD Other Cardiovascular History: 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 Gastrointestinal History: Reports: Chronic Constipation Genitourinary History: Reports: BPH, Prostate Disorder, Renal Calculus, UTI, Recurrent Other Genitourinary History: johnson catheter since july 2019 Musculoskeletal History: Reports: Arthritis, Osteoarthritis Other Musculoskeletal History: LEFT ING HERNIA Psychiatric History: Reports: Depression Other Psychiatric History: MALAISE AND FATIGUE Other Hematologic History: HYPERLIPIDEMIA Oncologic (Cancer) History: Reports: Prostate Other Oncologic History: MALIGNANT NEOPLASM OF PROSTATE - Past Surgical History HEENT Surgical History: Reports: Cataract Surgery Other HEENT Surgeries/Procedures: L bilat cataract GI Surgical History: Reports: Appendectomy, Hernia, Inguinal Other GI Surgeries/Procedures: L hernia repair Male Surgical History: Reports: Renal Calculus Social & Family History - Tobacco Use Tobacco Use Status *Q: Former Tobacco User (Nonsmoker since his 20s.) - Caffeine Use Caffeine Use: Reports: Coffee - Alcohol Use Alcohol Use History: No - Living Situation & Occupation Living situation: Reports: Occupation: Retired Social History Comment: Lives by himself in his own home. Family checks on him frequently. ED ROS GENERAL - Review of Systems Review Of Systems: See Below Constitutional: Reports: No Symptoms HEENT: Reports: No Symptoms Respiratory: Reports: No Symptoms Cardiovascular: Reports: No Symptoms Endocrine: Reports: No Symptoms GI/Abdominal: Reports: No Symptoms : Reports: Urinary Retention (Johnson catheter in place for this and apparently with problems earlier) Musculoskeletal: Reports: No Symptoms Skin: Reports: No Symptoms Neurological: Reports: No Symptoms Hematologic/Lymphatic: Reports: No Symptoms Immunologic: Reports: No Symptoms ED EXAM, RENAL/ - Physical Exam Exam: See Below Exam Limited By: No Limitations General Appearance: Alert, WD/WN, No Apparent Distress Eye Exam: Bilateral Eye: EOMI, Normal Inspection Ears: Normal External Exam, Hearing Grossly Normal Nose: Normal Inspection, Normal Mucosa, No Blood Throat/Mouth: Normal Oropharynx, Normal Voice, No Airway Compromise Head: Atraumatic, Normocephalic Neck: Normal Inspection, Supple, Non-Tender, Full Range of Motion Respiratory/Chest: No Respiratory Distress, Lungs Clear, Normal Breath Sounds Cardiovascular: Normal Peripheral Pulses, Regular Rate, Rhythm, No JVD, No Murmur GI/Abdominal: Normal Bowel Sounds, Soft, Non-Tender, No Mass (Male) Exam: Other (Johnson catheter in place.) Back Exam: Normal Inspection, Full Range of Motion Extremities: Normal Inspection, Normal Range of Motion, Non-Tender, No Pedal Edema, Normal Capillary Refill Neurological: Alert, Oriented, CN II-XII Intact, No Motor/Sensory Deficits, Other (Appropriately responsive and interactive. Somewhat confabulatory. This is his normal per his daughter.) Psychiatric: Normal Affect Skin Exam: Warm, Dry, Intact, Normal Color, No Rash Course - Vital Signs Last Recorded V/S: Last Vital Signs Temp 36.5 C 03/09/20 10:03 Pulse 94 03/09/20 10:03 Resp 18 03/09/20 10:03 BP 91/67 03/09/20 10:03 Pulse Ox 99 03/09/20 10:03 - Orders/Labs/Meds Orders: Active Orders 24 hr Category Date Time Status Johnson Catheter Insertion [Insert Urinary Catheter] [OM. Care 03/09/20 09:15 Ordered PC] Q24H Meds: Medications Discontinued Medications Generic Name Dose Route Start Last Admin Trade Name Freq PRN Reason Stop Dose Admin Lidocaine HCl 10 ml 03/09/20 09:06 03/09/20 09:13 Glydo .XX 03/09/20 09:07 10 ml ONETIME ONE Administration - Re-Assessments/Exams Free Text/Narrative Re-Assessment/Exam: 03/09/20 09:35: Patient with chronic indwelling Johnson catheter that is a 14 Cymro and was apparently plugged. Been removed and replaced with a 16 Cymro Johnson catheter and it is now draining. He appears nontoxic and his abdomen is soft and nontender. He will be discharged home at this point. They should continue Johnson catheter care as they have been instructed in the past and follow-up with her primary provider as needed. For any further problems or failure of the catheter to drain, they can come back to the emergency department. Departure - Departure Time of Disposition: 10:12 Disposition: Home, Self-Care 01 Condition: Good (Improved) Clinical Impression: Urinary retention due to benign prostatic hyperplasia Johnson catheter problem Qualifiers: Encounter type: initial encounter Qualified Code(s): T83.9XXA - Unspecified complication of genitourinary prosthetic device, implant and graft, initial encounter - Discharge Information Instructions: Indwelling Urinary Catheter Care, Adult Referrals: PCP,None [Ordering Only Provider] - Forms: ED Department Discharge Additional Instructions: Your Johnson catheter was replaced. It appears to be draining normally now. Continue to care for the Johnson catheter as you have been instructed in the past. Drink plenty of fluids. Back to the emergency department for Johnson catheter not draining, increasing abdominal swelling or pain, fever or any other concerning sign or symptom. Sepsis Event Note (ED) - Evaluation Sepsis Screening Result: No Definite Risk - Focused Exam Vital Signs: Vital Signs Temp Pulse Resp BP Pulse Ox 03/09/20 10:03 36.5 C 94 18 91/67 99 03/09/20 08:15 36.8 C 75 16 130/92 H 97 - My Orders Last 24 Hours: My Active Orders 03/09/20 09:15 Johnson Catheter Insertion [Insert Urinary Catheter] [OM.PC] Q24H - Assessment/Plan Last 24 Hours: My Active Orders 03/09/20 09:15 Johnson Catheter Insertion [Insert Urinary Catheter] [OM.PC] Q24H
[2020-03-09] MEDS ORDERED: Lidocaine 2% HCl 6 ML JEL.PF.APP ONE (09:06)
[2020-03-09 11:43] VITALS: BP 91/67; PULSE 94
== END 2020-03-09 10:12 | disposition home or self-care (01) ==
LOC: FB.ED 08:06
DX: N40.1 Benign prostatic hyperplasia with lower urinary tract symptoms (principal); R33.8 Other retention of urine; T83.9XXA Unspecified complication of genitourinary prosthetic device, implant and graft, initial encounter; I10 Essential (primary) hypertension; I25.10 Atherosclerotic heart disease of native coronary artery without angina pectoris; E78.00 Pure hypercholesterolemia, unspecified; Z79.82 Long term (current) use of aspirin; Z79.899 Other long term (current) drug therapy; Z90.49 Acquired absence of other specified parts of digestive tract; Z87.891 Personal history of nicotine dependence
CPT/HCPCS: 51702; 99283-25; A9270-GY

== ENCOUNTER 2020-03-30 02:56 | Emergency (ER) | payer MEDICARE, BC ==
[2020-03-30] MEDS ORDERED: Nitrofurantoin Monohydrate/Macrocrystalline 100 MG Cap PO ONE (02:57)
[2020-03-30] MEDS ORDERED: Lidocaine 2% HCl 6 ML JEL.PF.APP ONE (03:15)
--- NOTE | 2020-03-30 06:58 | EDM.PDOC ---
ED HPI GENERAL MEDICAL PROBLEM - General Chief Complaint: Genitourinary Problem Time Seen by Provider: 03/30/20 03:00 Source of Information: Reports: Patient History Limitations: Reports: No Limitations - History of Present Illness INITIAL COMMENTS - FREE TEXT/NARRATIVE: Km complains of urinary retention and leakage of urine from the johnson. This is of sudden osent around 1 AM. No fever.He did endorse pain in the suprapubic pelvic area. - Related Data Allergies Allergy/AdvReac Type Severity Reaction Status Date / Time No Known Allergies Allergy Verified 03/30/20 03:15 Home Meds: Home Meds Aspirin [Halfprin] 81 mg PO DAILY 03/16/16 [History] Docusate Sodium [Colace] 100 mg PO DAILY PRN 03/16/16 [History] Ergocalciferol (Vitamin D2) [Vitamin D] 400 units PO DAILY 03/16/16 [History] Lovastatin [Mevacor] 20 mg PO BEDTIME 03/16/16 [History] Lutein/Min/Vit C/Vit E Acetate [Ocuvite Lutein] 1 tab PO DAILY 03/16/16 [His tory] Terazosin [Hytrin] 10 mg PO BEDTIME 03/16/16 [History] amLODIPine [Norvasc] 5 mg PO BID 03/16/16 [History] timoloL maleate [Timoptic 0.5% Ophth Soln] 1 drop EYERT DAILY 03/16/16 [History] Ipratropium [Atrovent 0.03% Nasal [place]] 2 spray NS BID PRN 11/06/18 [History] Latanoprost [Xalatan] 1 drop EYERT BEDTIME 11/06/18 [History] Leg Vein Essentials 1 cap PO DAILY 03/28/19 [History] Losartan/Hydrochlorothiazide [Losartan-HCTZ 100-12.5 MG] 1 tab PO DAILY 03/28/19 [History] Metoprolol Succinate [Toprol XL] 25 mg PO DAILY 03/28/19 [History] Pantoprazole [ProTONIX] 40 mg PO DAILY 03/28/19 [History] Warfarin [Coumadin] 2.5 mg PO WE@1800 03/28/19 [History] Warfarin [Coumadin] 3.75 mg PO SUMOTUTHFRSA@1800 03/28/19 [History] Tamsulosin [Tamsulosin 24 Hr] 0.4 mg PO DAILY #10 cap.er 04/07/19 [Rx] traMADol [Ultram] 50 mg PO Q6H PRN #15 tab 04/07/19 [Rx] Amoxicillin/Clavulanate K [Augmentin 875-125 MG] 1 tab PO BID #20 tablet 04/12/19 [Rx] Amoxicillin/Clavulanate K [Augmentin 500-125 MG] 1 tab PO BID #20 tab 09/30/19 [Rx] Minocycline [Minocin] 50 mg PO BID #14 cap 01/16/20 [Rx] Nitrofurantoin Monohyd/M-Cryst [Macrobid 100 mg Capsule] 100 mg PO BID #14 capsule 01/16/20 [Rx] Phenazopyridine HCl [Pyridium] 100 mg PO BID #6 tablet 01/16/20 [Rx] Past Medical History HEENT History: Reports: Cataract, Glaucoma, Hard of Hearing Cardiovascular History: Reports: Arrhythmia, CAD, High Cholesterol, Hypertension, PVD Other Cardiovascular History: 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 Gastrointestinal History: Reports: Chronic Constipation Genitourinary History: Reports: BPH, Prostate Disorder, Renal Calculus, UTI, Recurrent Other Genitourinary History: johnson catheter since july 2019 Musculoskeletal History: Reports: Arthritis, Osteoarthritis Other Musculoskeletal History: LEFT ING HERNIA Psychiatric History: Reports: Depression Other Psychiatric History: MALAISE AND FATIGUE Hematologic History: Reports: None Other Hematologic History: HYPERLIPIDEMIA Oncologic (Cancer) History: Reports: Prostate Other Oncologic History: MALIGNANT NEOPLASM OF PROSTATE - Infectious Disease History Infectious Disease History: Reports: None - Past Surgical History HEENT Surgical History: Reports: Cataract Surgery Other HEENT Surgeries/Procedures: L bilat cataract GI Surgical History: Reports: Appendectomy, Hernia, Inguinal Other GI Surgeries/Procedures: L hernia repair Male Surgical History: Reports: Renal Calculus Social & Family History - Family History Family Medical History: No Pertinent Family History - Tobacco Use Tobacco Use Status *Q: Unknown Ever Used Tobacco - Caffeine Use Caffeine Use: Reports: Coffee - Recreational Drug Use Recreational Drug Use: No - Living Situation & Occupation Living situation: Reports: Occupation: Retired ED ROS GENERAL - Review of Systems Review Of Systems: Comprehensive ROS is negative, except as noted in HPI. ED EXAM, RENAL/ - Physical Exam Exam: See Below Exam Limited By: No Limitations General Appearance: Alert, WD/WN Course - Vital Signs Last Recorded V/S: Last Vital Signs Temp 97.3 F 03/30/20 04:21 Pulse 75 03/30/20 04:21 Resp 20 03/30/20 04:21 BP 116/87 03/30/20 04:21 Pulse Ox 96 03/30/20 04:21 - Orders/Labs/Meds Orders: Active Orders 24 hr Category Date Time Status Insert Urinary Catheter [OM.PC] Q24H Care 03/30/20 03:45 Ordered Labs: Laboratory Tests 03/30/20 Range/Units 03:45 Urine Color Yellow (YELLOW) Urine Appearance Cloudy (CLEAR) Urine pH 5.0 (5.0-6.5) Ur Specific [place] 1.020 (1.010-1.025) Urine Protein Trace (NEGATIVE) mg/dL Urine Glucose (UA) Normal (NORMAL) mg/dL Urine Ketones 15 H (NEGATIVE) mg/dL Urine Occult Blood Moderate H (NEGATIVE) Urine Nitrite Positive H (NEGATIVE) Urine Bilirubin Negative (NEGATIVE) Urine Urobilinogen 1 H (NEGATIVE) mg/dL Ur Leukocyte Esterase Large H (NEGATIVE) Urine RBC 5-10 H (0-5) Urine WBC 75-100 H (0-5) Ur Squamous Epith Cells Few H (NS,R,O) Urine Bacteria Many H (NS) Meds: Medications Discontinued Medications Generic Name Dose Route Start Last Admin Trade Name Freq PRN Reason Stop Dose Admin Lidocaine HCl 6 ml 03/30/20 03:15 03/30/20 03:44 Glydo .XX 03/30/20 03:16 6 ml ONETIME ONE Administration Departure - Departure Time of Disposition: 05:00 Disposition: Home, Self-Care 01 Condition: Good Clinical Impression: UTI, Urinary tract infectious disease Johnson catheter problem Qualifiers: Encounter type: initial encounter Qualified Code(s): T83.9XXA - Unspecified complication of genitourinary prosthetic device, implant and graft, initial encounter - Discharge Information Instructions: Nitrofurantoin tablets or capsules, Urinary Tract Infection, Adult, [id number], Indwelling Urinary Catheter Care, Adult, [id number] Referrals: Gary Almonte MD [Primary Care Provider] - Forms: ED Department Discharge Additional Instructions: Activity as tolerated. Increase fluids. Catheter cares twice a day with soap & water. Nitrofurantoin 100mg twice a day for 5 days. Tylenol as needed for pain or fever. Follow up at end of next week with your regular MD at clinic for recheck. Sepsis Event Note (ED) - Evaluation Sepsis Screening Result: No Definite Risk - Focused Exam Vital Signs: Vital Signs Temp Pulse Resp BP Pulse Ox 03/30/20 04:21 97.3 F 75 20 116/87 96 - Problem List & Annotations (1) UTI, Urinary tract infectious disease SNOMED Code(s): 14016263 Code(s): N39.0 - URINARY TRACT INFECTION, SITE NOT SPECIFIED Status: Acute (2) Johnson catheter problem SNOMED Code(s): 047336909 Code(s): T83.9XXA - UNSP COMPLICATION OF GENITOURINARY PROSTH DEV/GRFT, INIT Status: Acute Qualifiers: Encounter type: initial encounter Qualified Code(s): T83.9XXA - Unspecified complication of genitourinary prosthetic device, implant and graft, initial encounter - Problem List Review Problem List Initiated/Reviewed/Updated: Yes - My Orders Last 24 Hours: My Active Orders 03/30/20 03:45 Insert Urinary Catheter [OM.PC] Q24H - Assessment/Plan Last 24 Hours: My Active Orders 03/30/20 03:45 Insert Urinary Catheter [OM.PC] Q24H Plan: The Johnson was changed, and a script for Macrobid sent home with,for a UTI.
[2020-03-30 09:44] VITALS: BP 142/94; PULSE 73
== END 2020-03-30 05:47 | disposition home or self-care (01) ==
LOC: FB.ED 02:56
DX: T83.038A Leakage of other urinary catheter, initial encounter (principal); N39.0 Urinary tract infection, site not specified; N40.1 Benign prostatic hyperplasia with lower urinary tract symptoms; R33.8 Other retention of urine; E78.5 Hyperlipidemia, unspecified; I25.10 Atherosclerotic heart disease of native coronary artery without angina pectoris; I10 Essential (primary) hypertension; M19.90 Unspecified osteoarthritis, unspecified site; Z79.01 Long term (current) use of anticoagulants; Z79.82 Long term (current) use of aspirin; Z79.899 Other long term (current) drug therapy
CPT/HCPCS: 51702; 81001; 87086; 87088; 87186; 99283; A9270

== ENCOUNTER 2020-05-31 15:42 | Emergency (ER) | payer MEDICARE, BC ==
[2020-05-31] MEDS ORDERED: Lidocaine 2% HCl 6 ML JEL.PF.APP ONE ×2 (16:13→16:15)
--- NOTE | 2020-05-31 16:19 | EDM.PDOC ---
ED HPI GENERAL MEDICAL PROBLEM - General Stated Complaint: SEVERE PAIN Time Seen by Provider: 05/31/20 16:15 Source of Information: Reports: Patient History Limitations: Reports: No Limitations - History of Present Illness INITIAL COMMENTS - FREE TEXT/NARRATIVE: Km complains of acute severe pelvic pain,and blockage of his Johnson. This started this mornin. No fever. Has noted blood in his catheter bag,as well. He is on correction anticoagulation-Coumadin - Related Data Allergies Allergy/AdvReac Type Severity Reaction Status Date / Time No Known Allergies Allergy Verified 03/30/20 03:15 Home Meds: Home Meds Aspirin [Halfprin] 81 mg PO DAILY 03/16/16 [History] Docusate Sodium [Colace] 100 mg PO DAILY PRN 03/16/16 [History] Ergocalciferol (Vitamin D2) [Vitamin D] 400 units PO DAILY 03/16/16 [History] Lovastatin [Mevacor] 20 mg PO BEDTIME 03/16/16 [History] Lutein/Min/Vit C/Vit E Acetate [Ocuvite Lutein] 1 tab PO DAILY 03/16/16 [History] Terazosin [Hytrin] 10 mg PO BEDTIME 03/16/16 [History] amLODIPine [Norvasc] 5 mg PO BID 03/16/16 [History] timoloL maleate [Timoptic 0.5% Ophth Soln] 1 drop EYERT DAILY 03/16/16 [History] Ipratropium [Atrovent 0.03% Nasal [place]] 2 spray NS BID PRN 11/06/18 [History] Latanoprost [Xalatan] 1 drop EYERT BEDTIME 11/06/18 [History] Leg Vein Essentials 1 cap PO DAILY 03/28/19 [History] Losartan/Hydrochlorothiazide [Losartan-HCTZ 100-12.5 MG] 1 tab PO DAILY 03/28/19 [History] Metoprolol Succinate [Toprol XL] 25 mg PO DAILY 03/28/19 [History] Pantoprazole [ProTONIX] 40 mg PO DAILY 03/28/19 [History] Warfarin [Coumadin] 2.5 mg PO WE@1800 03/28/19 [History] Warfarin [Coumadin] 3.75 mg PO SUMOTUTHFRSA@1800 03/28/19 [History] Tamsulosin [Tamsulosin 24 Hr] 0.4 mg PO DAILY #10 cap.er 04/07/19 [Rx] traMADol [Ultram] 50 mg PO Q6H PRN #15 tab 04/07/19 [Rx] Amoxicillin/Clavulanate K [Augmentin 875-125 MG] 1 tab PO BID #20 tablet 04/12/19 [Rx] Amoxicillin/Clavulanate K [Augmentin 500-125 MG] 1 tab PO BID #20 tab 09/30/19 [Rx] Minocycline [Minocin] 50 mg PO BID #14 cap 01/16/20 [Rx] Nitrofurantoin Monohyd/M-Cryst [Macrobid 100 mg Capsule] 100 mg PO BID #14 capsule 01/16/20 [Rx] Phenazopyridine HCl [Pyridium] 100 mg PO BID #6 tablet 01/16/20 [Rx] Past Medical History HEENT History: Reports: Cataract, Glaucoma, Hard of Hearing Cardiovascular History: Reports: Arrhythmia, CAD, High Cholesterol, Hypertension, PVD Other Cardiovascular History: 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 Gastrointestinal History: Reports: Chronic Constipation Genitourinary History: Reports: BPH, Prostate Disorder, Renal Calculus, UTI, Recurrent Other Genitourinary History: johnson catheter since july 2019 Musculoskeletal History: Reports: Arthritis, Osteoarthritis Other Musculoskeletal History: LEFT ING HERNIA Psychiatric History: Reports: Depression Other Psychiatric History: MALAISE AND FATIGUE Hematologic History: Reports: None Other Hematologic History: HYPERLIPIDEMIA Oncologic (Cancer) History: Reports: Prostate Other Oncologic History: MALIGNANT NEOPLASM OF PROSTATE - Infectious Disease History Infectious Disease History: Reports: None - Past Surgical History HEENT Surgical History: Reports: Cataract Surgery Other HEENT Surgeries/Procedures: L bilat cataract GI Surgical History: Reports: Appendectomy, Hernia, Inguinal Other GI Surgeries/Procedures: L hernia repair Male Surgical History: Reports: Renal Calculus Social & Family History - Family History Family Medical History: No Pertinent Family History - Caffeine Use Caffeine Use: Reports: Coffee - Living Situation & Occupation Living situation: Reports: Occupation: Retired ED ROS GENERAL - Review of Systems Review Of Systems: Comprehensive ROS is negative, except as noted in HPI. ED EXAM, RENAL/ - Physical Exam Exam: See Below Text/Narrative:: Has inflammation of glans penis, and prepuce. Exam Limited By: No Limitations General Appearance: Alert GI/Abdominal: Normal Bowel Sounds, Soft, Non-Tender (Male) Exam: Penile Lesions. No: Hernia, Scrotum Tenderness (R), Testicular Mass, Testicular Tenderness (L) Course - Orders/Labs/Meds Meds: Medications Discontinued Medications Generic Name Dose Route Start Last Admin Trade Name Danielle PRN Reason Stop Dose Admin Lidocaine HCl Confirm 05/31/20 16:13 Glydo Administered 05/31/20 16:14 Dose 6 ml .ROUTE .STK-MED ONE Departure - Departure Time of Disposition: 16:18 Disposition: Home, Self-Care 01 Condition: Good Clinical Impression: Johnson catheter problem Qualifiers: Encounter type: initial encounter Qualified Code(s): T83.9XXA - Unspecified complication of genitourinary prosthetic device, implant and graft, initial encounter - Discharge Information Referrals: Gary Almonte MD [Primary Care Provider] - - Problem List & Annotations (1) Urinary retention SNOMED Code(s): 611441505 Code(s): R33.9 - RETENTION OF URINE, UNSPECIFIED Status: Acute Current Visit: Yes (2) Balanitis SNOMED Code(s): 02834844 Code(s): N48.1 - BALANITIS Status: Acute Current Visit: Yes (3) Johnson catheter problem SNOMED Code(s): 732610940 Code(s): T83.9XXA - UNSP COMPLICATION OF GENITOURINARY PROSTH DEV/GRFT, INIT Status: Acute Current Visit: Yes Qualifiers: Encounter type: initial encounter Qualified Code(s): T83.9XXA - Unspecified complication of genitourinary prosthetic device, implant and graft, initial encounter - Problem List Review Problem List Initiated/Reviewed/Updated: Yes - Assessment/Plan Plan: Diflucan x 1. Johnson catheter change.
[2020-05-31] MEDS ORDERED: Fluconazole 150 MG Tab PO ONE (16:20)
[2020-05-31] MEDS ORDERED: Fluconazole 100 MG Tab ONE (16:25)
[2020-05-31] MEDS ORDERED: Fluconazole 100 MG Tab PO ONE (16:27)
[2020-05-31 17:02] VITALS: PULSE 76
[2020-05-31 17:15] VITALS: BP 115/56
== END 2020-05-31 16:45 | disposition home or self-care (01) ==
LOC: FB.ED 15:42
DX: T83.098A Other mechanical complication of other urinary catheter, initial encounter (principal); I10 Essential (primary) hypertension; I25.10 Atherosclerotic heart disease of native coronary artery without angina pectoris; Z79.82 Long term (current) use of aspirin; Z79.01 Long term (current) use of anticoagulants; Z79.899 Other long term (current) drug therapy
CPT/HCPCS: 51702; 99283; A9270

== ENCOUNTER 2020-07-13 09:21 | Emergency (ER) | payer MEDICARE, BC ==
[2020-07-13] MEDS ORDERED: cefTRIAXone 1 GM Vial IM ONE (12:03)
[2020-07-13] MEDS ORDERED: Potassium Chloride 20 MEQ Tab.ER PO ONE (12:03)
--- NOTE | 2020-07-13 12:10 | EDM.PDOC ---
ED HPI GENERAL MEDICAL PROBLEM - General Chief Complaint: Genitourinary Problem Stated Complaint: URINARY TRACT PROBLEM Time Seen by Provider: 07/13/20 10:00 Source of Information: Reports: Patient, Family History Limitations: Reports: No Limitations - History of Present Illness INITIAL COMMENTS - FREE TEXT/NARRATIVE: c/o leaking johnson PCP Arsalan York, pt sent to ED 4d ago to replace johnson which was done still leaking from leg bag, flushed fine here by RN, pt likely is attaching the plug at the bottom of his leg bag securely urine quite cloudy here dtr May [phone] provides pt care and does not know what antbx is on, pt does not know pt here with a different dtr, May goes to clinic with pt UC with E coli sensitive to all from 4d ago PMH: includes BPH has had johnson over 1y as pt has had some confusion and weakness, additional labs and head CT obtained, pt with inc'd CRP and low K 2.[address] with age related changes - Related Data Allergies Allergy/AdvReac Type Severity Reaction Status Date / Time No Known Allergies Allergy Verified 05/31/20 17:01 Home Meds: Home Meds Potassium Chloride 20 meq PO BID #6 tablet.er 07/13/20 [Rx] Past Medical History HEENT History: Reports: Cataract, Glaucoma, Hard of Hearing Cardiovascular History: Reports: Arrhythmia, CAD, High Cholesterol, Hypertension, PVD Other Cardiovascular History: 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 Gastrointestinal History: Reports: Chronic Constipation Genitourinary History: Reports: BPH, Prostate Disorder, Renal Calculus, UTI, Recurrent Other Genitourinary History: johnson catheter since july 2019 Musculoskeletal History: Reports: Arthritis, Osteoarthritis Other Musculoskeletal History: LEFT ING HERNIA Psychiatric History: Reports: Depression Other Psychiatric History: MALAISE AND FATIGUE Hematologic History: Reports: None Other Hematologic History: HYPERLIPIDEMIA Oncologic (Cancer) History: Reports: Prostate Other Oncologic History: MALIGNANT NEOPLASM OF PROSTATE - Infectious Disease History Infectious Disease History: Reports: None - Past Surgical History HEENT Surgical History: Reports: Cataract Surgery Other HEENT Surgeries/Procedures: L bilat cataract GI Surgical History: Reports: Appendectomy, Hernia, Inguinal Other GI Surgeries/Procedures: L hernia repair Male Surgical History: Reports: Renal Calculus Social & Family History - Family History Family Medical History: No Pertinent Family History - Tobacco Use Tobacco Use Status *Q: Unknown Ever Used Tobacco - Caffeine Use Caffeine Use: Reports: None - Recreational Drug Use Recreational Drug Use: No - Living Situation & Occupation Living situation: Reports: Occupation: Retired ED ROS GENERAL - Review of Systems Review Of Systems: See Below Constitutional: Reports: No Symptoms HEENT: Reports: No Symptoms Respiratory: Reports: No Symptoms Cardiovascular: Reports: No Symptoms Endocrine: Reports: No Symptoms GI/Abdominal: Reports: No Symptoms : Reports: No Symptoms Musculoskeletal: Reports: No Symptoms Skin: Reports: No Symptoms Neurological: Reports: Weakness Psychiatric: Reports: No Symptoms Hematologic/Lymphatic: Reports: No Symptoms Immunologic: Reports: No Symptoms ED EXAM, RENAL/ - Physical Exam Exam: See Below Exam Limited By: No Limitations General Appearance: Alert, WD/WN, No Apparent Distress, Other (grumpy, complains a lot) Ears: Hearing Loss Respiratory/Chest: No Respiratory Distress Cardiovascular: Irregularly Irregular GI/Abdominal: Soft, Non-Tender, No Distention, Other (no suprapubic tender) (Male) Exam: Other (uncircumcised male with indwelling johnson, no red/warm/discharge/leakage) Back Exam: Normal Inspection Extremities: Non-Tender, No Pedal Edema, Other (Jay around R calf with attached leg bag, no leakage, very cloudy urine) Skin Exam: Warm, Dry, Intact, Normal Color, No Rash Lymphatic: No Adenopathy Course - Vital Signs Last Recorded V/S: Last Vital Signs Temp 36.4 C 07/13/20 09:48 Pulse 72 07/13/20 09:48 Resp 16 07/13/20 09:48 BP 104/71 07/13/20 09:48 Pulse Ox 100 07/13/20 09:48 - Orders/Labs/Meds Orders: Active Orders 24 hr Category Date Time Status EKG Documentation Completion [RC] ASDIRECTED Care 07/13/20 09:57 Active Head wo Cont [CT] Stat Exams 07/13/20 09:54 Taken CULTURE BLOOD [BC] Urgent Lab 07/13/20 10:33 Received Blood Culture x2 Reflex Set [OM.PC] Urgent Oth 07/13/20 09:54 Ordered EKG 12 Lead [EK] Routine Ther 07/13/20 09:56 Ordered Labs: Laboratory Tests 07/13/20 07/13/2007/13/21 Range/Units 10:33 10:33 10:33 WBC 4.8 (3.2-10.1) x10-3/uL RBC 3.97 (3.90-5.90) x10(6)uL Hgb 12.7 L (12.9-17.7) g/dL Hct 38.4 (38.3-50.1) % MCV 96.7 (80.8-98.7) fL MCH 32.1 (27.0-33.3) pg MCHC 33.2 (28.7-35.3) g/dL RDW 15.4 H (12.4-15.0) % Plt Count 172 (117-477) x10(3)uL MPV 9.6 (6.7-11.0) fL Neut % (Auto) 52.5 (40.3-71.8) % Lymph % (Auto) 31.3 (15.8-45.3) % Sherman % (Auto) 10.0 (5.5-15.2) % Eos % (Auto) 5.0 (0.1-6.8) % Baso % (Auto) 1.2 (0.3-3.8) % Neut # (Auto) 2.5 (1.7-6.9) x10-3/uL Lymph # (Auto) 1.5 (0.5-4.5) x10-3/uL Sherman # (Auto) 0.5 (0.0-1.2) x10-3/uL Eos # (Auto) 0.2 (0.0-0.6) x10-3/uL Baso # (Auto) 0.1 (0.0-0.3) x10-3/uL Sodium 145 (135-145) mmol/L Potassium 2.7 L* (3.5-5.3) mmol/L Chloride 105 (100-110) mmol/L Carbon Dioxide 31 (21-32) mmol/L BUN 16 (7-18) mg/dL Creatinine 1.4 H (0.70-1.30) mg/dL Est Cr Clr Drug Dosing 37.12 mL/min Estimated GFR (MDRD) 48 L (>60) BUN/Creatinine Ratio 11.4 (9-20) Glucose 105 (80-116) mg/dL Lactic Acid 1.9 (0.4-2.0) mmol/L Calcium 9.1 (8.6-10.2) mg/dL Magnesium (1.8-2.5) mg/dL Total Bilirubin 1.7 H (0.1-1.3) mg/dL AST 20 D (5-25) IU/L ALT 23 D (12-36) U/L Alkaline Phosphatase 65 (56-112) IU/L Troponin I (4.0-60.3) pg/mL C-Reactive Protein (0.5-0.9) mg/dL NT-Pro-B Natriuret Pep (<=450) pg/mL Total Protein 7.6 (6.0-8.0) g/dL Albumin 3.3 (3.2-4.6) g/dL Globulin 4.3 g/dL Albumin/Globulin Ratio 0.8 Urine Color (YELLOW) Urine Appearance (CLEAR) Urine pH (5.0-6.5) Ur Specific [place] (1.010-1.025) Urine Protein (NEGATIVE) mg/dL Urine Glucose (UA) (NORMAL) mg/dL Urine Ketones (NEGATIVE) mg/dL Urine Occult Blood (NEGATIVE) Urine Nitrite (NEGATIVE) Urine Bilirubin (NEGATIVE) Urine Urobilinogen (NEGATIVE) mg/dL Ur Leukocyte Esterase (NEGATIVE) U Hyaline Cast (Auto) (NS) Urine RBC (0-5) Urine WBC (0-5) Ur Squamous Epith Cells (NS,R,O) Ur Renal Epithelial Cell (NS) Urine Bacteria (NS) Urine Mucus (NS) 07/13/20 07/13/20 07/13/20 Range/Units 10:33 10:33 10:33 WBC (3.2-10.1) x10-3/uL RBC (3.90-5.90) x10(6)uL Hgb (12.9-17.7) g/dL Hct (38.3-50.1) % MCV (80.8-98.7) fL MCH (27.0-33.3) pg MCHC (28.7-35.3) g/dL RDW (12.4-15.0) % Plt Count (117-477) x10(3)uL MPV (6.7-11.0) fL Neut % (Auto) (40.3-71.8) % Lymph % (Auto) (15.8-45.3) % Sherman % (Auto) (5.5-15.2) % Eos % (Auto) (0.1-6.8) % Baso % (Auto) (0.3-3.8) % Neut # (Auto) (1.7-6.9) x10-3/uL Lymph # (Auto) (0.5-4.5) x10-3/uL Sherman # (Auto) (0.0-1.2) x10-3/uL Eos # (Auto) (0.0-0.6) x10-3/uL Baso # (Auto) (0.0-0.3) x10-3/uL Sodium (135-145) mmol/L Potassium (3.5-5.3) mmol/L Chloride (100-110) mmol/L Carbon Dioxide (21-32) mmol/L BUN (7-18) mg/dL Creatinine (0.70-1.30) mg/dL Est Cr Clr Drug Dosing mL/min Estimated GFR (MDRD) (>60) BUN/Creatinine Ratio (9-20) Glucose (80-116) mg/dL Lactic Acid (0.4-2.0) mmol/L Calcium (8.6-10.2) mg/dL Magnesium 1.9 (1.8-2.5) mg/dL Total Bilirubin (0.1-1.3) mg/dL AST (5-25) IU/L ALT (12-36) U/L Alkaline Phosphatase (56-112) IU/L Troponin I 24.1 (4.0-60.3) pg/mL C-Reactive Protein 2.2 H (0.5-0.9) mg/dL NT-Pro-B Natriuret Pep (<=450) pg/mL Total Protein (6.0-8.0) g/dL Albumin (3.2-4.6) g/dL Globulin g/dL Albumin/Globulin Ratio Urine Color (YELLOW) Urine Appearance (CLEAR) Urine pH (5.0-6.5) Ur Specific [place] (1.010-1.025) Urine Protein (NEGATIVE) mg/dL Urine Glucose (UA) (NORMAL) mg/dL Urine Ketones (NEGATIVE) mg/dL Urine Occult Blood (NEGATIVE) Urine Nitrite (NEGATIVE) Urine Bilirubin (NEGATIVE) Urine Urobilinogen (NEGATIVE) mg/dL Ur Leukocyte Esterase (NEGATIVE) U Hyaline Cast (Auto) (NS) Urine RBC (0-5) Urine WBC (0-5) Ur Squamous Epith Cells (NS,R,O) Ur Renal Epithelial Cell (NS) Urine Bacteria (NS) Urine Mucus (NS) 07/13/20 07/13/20 Range/Units 10:33 10:46 WBC (3.2-10.1) x10-3/uL RBC (3.90-5.90) x10(6)uL Hgb (12.9-17.7) g/dL Hct (38.3-50.1) % MCV (80.8-98.7) fL MCH (27.0-33.3) pg MCHC (28.7-35.3) g/dL RDW (12.4-15.0) % Plt Count (117-477) x10(3)uL MPV (6.7-11.0) fL Neut % (Auto) (40.3-71.8) % Lymph % (Auto) (15.8-45.3) % Sherman % (Auto) (5.5-15.2) % Eos % (Auto) (0.1-6.8) % Baso % (Auto) (0.3-3.8) % Neut # (Auto) (1.7-6.9) x10-3/uL Lymph # (Auto) (0.5-4.5) x10-3/uL [place] # (Auto) (0.0-1.2) x10-3/uL Eos # (Auto) (0.0-0.6) x10-3/uL Baso # (Auto) (0.0-0.3) x10-3/uL Sodium (135-145) mmol/L Potassium (3.5-5.3) mmol/L Chloride (100-110) mmol/L Carbon Dioxide (21-32) mmol/L BUN (7-18) mg/dL Creatinine (0.70-1.30) mg/dL Est Cr Clr Drug Dosing mL/min Estimated GFR (MDRD) (>60) BUN/Creatinine Ratio (9-20) Glucose (80-116) mg/dL Lactic Acid (0.4-2.0) mmol/L Calcium (8.6-10.2) mg/dL Magnesium (1.8-2.5) mg/dL Total Bilirubin (0.1-1.3) mg/dL AST (5-25) IU/L ALT (12-36) U/L Alkaline Phosphatase (56-112) IU/L Troponin I (4.0-60.3) pg/mL C-Reactive Protein (0.5-0.9) mg/dL NT-Pro-B Natriuret Pep 1974 H* (<=450) pg/mL Total Protein (6.0-8.0) g/dL Albumin (3.2-4.6) g/dL Globulin g/dL Albumin/Globulin Ratio Urine Color Yellow (YELLOW) Urine Appearance Slightly cloudy (CLEAR) Urine pH 5.0 (5.0-6.5) Ur Specific [place] 1.020 (1.010-1.025) Urine Protein Negative (NEGATIVE) mg/dL Urine Glucose (UA) Normal (NORMAL) mg/dL Urine Ketones Negative (NEGATIVE) mg/dL Urine Occult Blood Moderate H (NEGATIVE) Urine Nitrite Negative (NEGATIVE) Urine Bilirubin Negative (NEGATIVE) Urine Urobilinogen Normal (NEGATIVE) mg/dL Ur Leukocyte Esterase Large H (NEGATIVE) U Hyaline Cast (Auto) Occasional H (NS) Urine RBC 20-30 H (0-5) Urine WBC 50-75 H (0-5) Ur Squamous Epith Cells Few H (NS,R,O) Ur Renal Epithelial Cell Few H (NS) Urine Bacteria Moderate H (NS) Urine Mucus Few H (NS) Meds: Medications Discontinued Medications Generic Name Dose Route Start Last Admin Trade Name Freq PRN Reason Stop Dose Admin Ceftriaxone Sodium 1 gm 07/13/20 12:03 Rocephin IM 07/13/20 12:04 ONETIME ONE Potassium Chloride 40 meq 07/13/20 12:03 Klor-Con M20 PO 07/13/20 12:04 ONETIME ONE - Re-Assessments/Exams Free Text/Narrative Re-Assessment/Exam: 07/13/20 12:17 inc'd CRP c/w chronic UTI, will give ceftriaxone 1 gm here dtr May thinks pt is on HCTZ, unknown if on K, yet K 2.7 and low, need for replacement discussed inc'd BNP likely chronic no cause for weakness except ongoing UTI Departure - Departure Time of Disposition: 12:05 Disposition: Home, Self-Care 01 Condition: Good Clinical Impression: Johnson catheter problem, E. coli UTI (urinary tract infection), Hypokalemia, Elevated C-reactive protein (CRP), Elevated brain natriuretic peptide (BNP) level - Discharge Information *PRESCRIPTION DRUG MONITORING PROGRAM REVIEWED*: Not Applicable *COPY OF PRESCRIPTION DRUG MONITORING REPORT IN PATIENT LEONEL: Not Applicable Prescriptions: Potassium Chloride 20 meq PO BID #6 tablet.er Instructions: Urinary Tract Infection, Adult, Hypokalemia, Indwelling Urinary Catheter Care, Adult Referrals: Arsalan York PA [Primary Care Provider] - Additional Instructions: Your urine is very cloudy. There still is infection present. The urine culture from 4 days ago shows the bacteria E coli that is sensitive to every antibiotic that was tested. Continue the antibiotic that you have at home. In the meantime, you were given a dose of ceftriaxone 1 gm IM to jump start treating the infection. You potassium is quite low. Take potassium 20 meq 1 tab 2 times a day for 3 days. See Arsalan York in 3 days so he can review your medications and make additional adjustments as needed. Return to Emergency Department if you are feeling worse. Sepsis Event Note (ED) - Evaluation Sepsis Screening Result: No Definite Risk - Focused Exam Vital Signs: Vital Signs Temp Pulse Resp BP Pulse Ox 07/13/20 09:48 36.4 C 72 16 104/71 100 - My Orders Last 24 Hours: My Active Orders 07/13/20 09:54 Head wo Cont [CT] Stat Blood Culture x2 Reflex Set [OM.PC] Urgent 07/13/20 09:56 EKG 12 Lead [EK] Routine 07/13/20 09:57 EKG Documentation Completion [RC] ASDIRECTED 07/13/20 10:33 CULTURE BLOOD [BC] Urgent - Assessment/Plan Last 24 Hours: My Active Orders 07/13/20 09:54 Head wo Cont [CT] Stat Blood Culture x2 Reflex Set [OM.PC] Urgent 07/13/20 09:56 EKG 12 Lead [EK] Routine 07/13/20 09:57 EKG Documentation Completion [RC] ASDIRECTED 07/13/20 10:33 CULTURE BLOOD [BC] Urgent
[2020-07-13 15:24] VITALS: BP 108/76; PULSE 70
== END 2020-07-13 12:30 | disposition home or self-care (01) ==
LOC: FB.ED 09:21
DX: N39.0 Urinary tract infection, site not specified (principal); B96.20 Unspecified Escherichia coli [E. coli] as the cause of diseases classified elsewhere; E87.6 Hypokalemia; R79.82 Elevated C-reactive protein (CRP); R79.1 Abnormal coagulation profile; I10 Essential (primary) hypertension; I25.10 Atherosclerotic heart disease of native coronary artery without angina pectoris; N40.0 Benign prostatic hyperplasia without lower urinary tract symptoms; Z96.0 Presence of urogenital implants
CPT/HCPCS: 36415; 70450; 80053; 81001; 83605; 83735; 83880; 84484; 85025; 86140; 87040; 93005; 96372; 99283; 99285-25; A9270-GY; J0696

== ENCOUNTER 2020-07-16 13:18 | Emergency (ER) | payer MEDICARE, BC ==
--- NOTE | 2020-07-16 14:12 | EDM.PDOC ---
ED HPI GENERAL MEDICAL PROBLEM - General Stated Complaint: CATH LEAKING Time Seen by Provider: 07/16/20 13:35 Source of Information: Reports: Patient History Limitations: Reports: No Limitations - History of Present Illness INITIAL COMMENTS - FREE TEXT/NARRATIVE: Patient presented to the ED because of leaking indwelling johnson cath. 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 Gastrointestinal History: Reports: Chronic Constipation Genitourinary History: Reports: BPH, Prostate Disorder, Renal Calculus, UTI, Recurrent Other Genitourinary History: johnson catheter since july 2019 Musculoskeletal History: Reports: Arthritis, Osteoarthritis Other Musculoskeletal History: LEFT ING HERNIA Psychiatric History: Reports: Depression Other Psychiatric History: MALAISE AND FATIGUE Hematologic History: Reports: None Other Hematologic History: HYPERLIPIDEMIA Oncologic (Cancer) History: Reports: Prostate Other Oncologic History: MALIGNANT NEOPLASM OF PROSTATE - Infectious Disease History Infectious Disease History: Reports: None - Past Surgical History HEENT Surgical History: Reports: Cataract Surgery Other HEENT Surgeries/Procedures: L bilat cataract GI Surgical History: Reports: Appendectomy, Hernia, Inguinal Other GI Surgeries/Procedures: L hernia repair Male Surgical History: Reports: Renal Calculus Social & Family History - Family History Family Medical History: No Pertinent Family History - Caffeine Use Caffeine Use: Reports: None - Living Situation & Occupation Living situation: Reports: Occupation: Retired ED ROS GENERAL - Review of Systems Review Of Systems: See Below Constitutional: Reports: No Symptoms HEENT: Reports: No Symptoms Respiratory: Reports: No Symptoms Cardiovascular: Reports: No Symptoms Endocrine: Reports: No Symptoms GI/Abdominal: Reports: No Symptoms : Reports: No Symptoms Musculoskeletal: Reports: No Symptoms Skin: Reports: No Symptoms ED EXAM, RENAL/ - Physical Exam Exam: See Below Exam Limited By: No Limitations General Appearance: Alert, No Apparent Distress Eye Exam: Bilateral Eye: PERRL Ears: Normal External Exam, Normal Canal Nose: Normal Inspection, Normal Mucosa Throat/Mouth: Normal Inspection, Normal Lips Head: Atraumatic, Normocephalic Neck: Normal Inspection, Supple, Non-Tender, Full Range of Motion Respiratory/Chest: No Respiratory Distress, Lungs Clear, Normal Breath Sounds, No Accessory Muscle Use, Chest Non-Tender Cardiovascular: Normal Peripheral Pulses, Regular Rate, Rhythm, No Edema, No Gallop, No JVD, No Murmur, No Rub GI/Abdominal: Normal Bowel Sounds, Soft, Non-Tender, No Organomegaly Back Exam: Normal Inspection, Full Range of Motion Extremities: Normal Inspection, Normal Range of Motion, Non-Tender Course - Vital Signs Text/Narrative:: Indwelling johnson replacement UC-pending Start on Bactrim DS Last Recorded V/S: Last Vital Signs Temp 36.6 C 07/16/20 13:30 Pulse 78 07/16/20 13:30 Resp 18 07/16/20 13:30 BP 126/67 07/16/20 13:30 Pulse Ox 100 07/16/20 13:30 - Orders/Labs/Meds Orders: Active Orders 24 hr Category Date Time Status Bladder Scan [RC] ASDIRECTED Care 07/16/20 13:45 Active Insert Urinary Catheter [OM.PC] Stat Care 07/16/20 13:50 Ordered Urinary Catheter Assessment [RC] QSHIFT Care 07/16/20 13:50 Active CULTURE URINE [RM] Stat Lab 07/16/20 15:05 Ordered Labs: Laboratory Tests 07/16/20 Range/Units 14:30 Urine Color Yellow (YELLOW) Urine Appearance Clear (CLEAR) Urine pH 5.0 (5.0-6.5) Ur Specific [place] 1.020 (1.010-1.025) Urine Protein 30 H (NEGATIVE) mg/dL Urine Glucose (UA) Normal (NORMAL) mg/dL Urine Ketones Negative (NEGATIVE) mg/dL Urine Occult Blood Large H (NEGATIVE) Urine Nitrite Negative (NEGATIVE) Urine Bilirubin Negative (NEGATIVE) Urine Urobilinogen Normal (NEGATIVE) mg/dL Ur Leukocyte Esterase Moderate H (NEGATIVE) Urine RBC 10-20 H (0-5) Urine WBC 5-10 H (0-5) Ur Squamous Epith Cells Occasional (NS,R,O) Urine Bacteria Few H (NS) Departure - Departure Time of Disposition: 14:30 Disposition: Home, Self-Care 01 Condition: Good Clinical Impression: Johnson catheter problem, UTI (urinary tract infection) - Discharge Information Prescriptions: Sulfamethoxazole/Trimethoprim [Bactrim Ds Tablet] 1 each PO BID #14 tablet Instructions: Indwelling Urinary Catheter Care, Adult, [id number], Urinary Tract Infection, Adult Referrals: Arsalan York PA [Primary Care Provider] - Additional Instructions: Please read discharge instructions on Johnson cath problem Continue your antibiotic Follow up as needed Sepsis Event Note (ED) - Focused Exam Vital Signs: Vital Signs Temp Pulse Resp BP Pulse Ox 07/16/20 13:30 36.6 C 78 18 126/67 100 - My Orders Last 24 Hours: My Active Orders 07/16/20 13:45 Bladder Scan [RC] ASDIRECTED 07/16/20 13:50 Insert Urinary Catheter [OM.PC] Stat Urinary Catheter Assessment [RC] QSHIFT 07/16/20 15:05 CULTURE URINE [RM] Stat - Assessment/Plan Last 24 Hours: My Active Orders 07/16/20 13:45 Bladder Scan [RC] ASDIRECTED 07/16/20 13:50 Insert Urinary Catheter [OM.PC] Stat Urinary Catheter Assessment [RC] QSHIFT 07/16/20 15:05 CULTURE URINE [RM] Stat
[2020-07-16 15:24] VITALS: BP 126/67; PULSE 78
== END 2020-07-16 14:45 | disposition home or self-care (01) ==
LOC: FB.ED 13:18
DX: T83.038A Leakage of other urinary catheter, initial encounter (principal); N39.0 Urinary tract infection, site not specified; I25.10 Atherosclerotic heart disease of native coronary artery without angina pectoris; I10 Essential (primary) hypertension
CPT/HCPCS: 51702; 81001; 87086; 99283